=== PATIENT | female | born 1945 | race Two or more races ===

== ENCOUNTER 2018-01-30 02:30 | Inpatient (IN) | payer MEDICARE, MEDICAID ==
[~2018-01-30] VITALS: Ht 172.7 cm; Wt 122.5 kg
--- NOTE | 2018-01-30 02:53 | NUR ---
72 YO FEMALE, PT BIBA#89, PT PER EMS HAD A WITNESSED SEIZURE, BS IN FIELD WAS 127 PT GIVEN 162MG OF ASA AND 2 SPRAYS OF NITRO PRIOR TO ARRIVAL. PATIENT DS TO ER BED, SKIN WARM AND DRY, RESP EVEN AND UNLABORED. AWAITING ORDERS FROM PROVIDER
[2018-01-30] MEDS ORDERED: HYDROCODONE/APAP 10/325MG 1 EA TABLET ONE (02:57)
[2018-01-30] MEDS ORDERED: NITROGLYCERIN PACKET 1 GM PACKET ONE (02:57)
[2018-01-30] MEDS ORDERED: NITROGLYCERIN PACKET 1 GM PACKET TD ONE (03:00)
[2018-01-30] MEDS ORDERED: HYDROCODONE/APAP 10/325MG 1 EA TABLET PO ONE (03:00)
[2018-01-30 03:14] LABS: BASOPHILS % (AUTO) 0.5 % (0.0-2.0); EOSINOPHILS # (AUTO) 0.1 /CMM (0.0-0.7); EOSINOPHILS % (AUTO) 1.6 % (0.0-6.0); HEMATOCRIT 32 % (33-45); HEMOGLOBIN 10.6 g/dL (11.5-14.8); LYMPHOCYTES # (AUTO) 0.9 /CMM (0.8-4.8); LYMPHOCYTES % (AUTO) 17.4 % (20.0-44.0); MEAN CORPUSCULAR HEMOGLOBIN 24 PG (26.0-33.0); MEAN CORPUSCULAR HGB CONC 33 g/dl (31.0-36.0); MEAN CORPUSCULAR VOLUME 72 fL (82-100); MONOCYTES # (AUTO) 0.5 /CMM (0.1-1.30); MONOCYTES % (AUTO) 9.3 % (2.0-12.0); NEUTROPHILS # (AUTO) 3.7 /CMM (1.8-8.9); NEUTROPHILS % (AUTO) 71.2 % (43.0-81.0); PLATELET COUNT (AUTO) 77 /CMM (150-450); RED BLOOD CELL COUNT(AUTO) 4.51 MIL/uL (4.0-5.2); WHITE BLOOD COUNT (AUTO) 5.2 K/uL (4.3-11.0)
[2018-01-30 03:24] LABS: CALCIUM, SERUM 8.6 mg/dL (8.5-10.1); CARBON DIOXIDE 21 mmol/L (21-32); CHLORIDE 103 mmol/L (98-107); CREATININE 0.7 mg/dL (0.6-1.3); GLUCOSE 175 mg/dL (74-106); POTASSIUM 3.6 mmol/L (3.5-5.1); SODIUM SERUM 137 mmol/L (136-145); UREA NITROGEN, BLOOD 18 mg/dL (7-18)
--- NOTE | 2018-01-30 03:26 | NUR ---
ORDERED MEDS GIVEN
[2018-01-30 03:31] LABS: TROPONIN I < 0.017 ng/mL (0.00-0.056)
[2018-01-30 03:36] LABS: ALANINE AMINOTRANSFERASE 30 U/L (12-78); ALBUMIN 3.1 g/dL (3.4-5.0); ALKALINE PHOSPHATASE 109 U/L (46-116); ASPARTATE AMINOTRANSFERASE 23 U/L (15-37); B-TYPE NATRIURETIC PEPTIDE 133 PG/ML (0-125); BILIRUBIN,DIRECT 0.1 mg/dL (0.0-0.2); BILIRUBIN,TOTAL 0.3 mg/dL (0.2-1.0); TOTAL PROTEIN, SERUM 6.9 g/dL (6.4-8.2)
[2018-01-30 03:39] LABS: LYMPHOCYTES % (MANUAL) 18 % (16-48); MONOCYTES % (MANUAL) 9 % (0-11.0); NEUTROPHILS % (MANUAL) 73 (42-76)
--- NOTE | 2018-01-30 04:19 | NUR ---
PAGED EPIC FOR PANEL
--- NOTE | 2018-01-30 05:07 | NUR ---
NEW ADMISSION CREAM DUMPER NOTES RECEIVED PT FROM ER VIA HUMBERTO, ACCOMPANIED BY STAFF. A & O X 4, ABLE TO MAKE NEEDS KNOWN, NO SOB, NO ACUTE DISTRESS NOTED @ THIS TIME. HAD C/O BACK PAIN & HEADACHE. V/S CHECKED. HOB ELEVATED. IV ACCESS TO LAC, INTACT PATENT, SL. ON BED REST. CONTINENT OF B & BM, MAY USE BSC FOR SAFETY. BODY CHECK DONE, PHOTOS TAKEN. ALL BELONGINGS ACCOUNTED FOR & DOCUMENTED BY APARTMENT PROPERTY MANAGER. ALL ORDERS VERIFIED BY MD, NOTED & CARRIED OUT. BED IN LOW LOCKED POSITION. CALL LIGHT WITHIN REACH. WILL CONTINUE TO MONITOR.
[2018-01-30 05:08] VITALS: BP 155/75
--- NOTE | 2018-01-30 05:09 | NUR ---
report given to ruth ann costello. pt transfered to [id number]/tele. pt transported via acls protocol.
[2018-01-30] MEDS ORDERED: TRAM50TA2 PO (05:11)
[2018-01-30] MEDS ORDERED: METF500T4 PO (05:11)
[2018-01-30] MEDS ORDERED: ASPI-605 PO (05:11)
[2018-01-30] MEDS ORDERED: CELE100C PO (05:11)
[2018-01-30] MEDS ORDERED: LOSA50TA21 PO (05:11)
[2018-01-30] MEDS ORDERED: FOLI1TAB16 PO (05:11)
[2018-01-30] MEDS ORDERED: CALC-811 PO (05:11)
[2018-01-30] MEDS ORDERED: RANI150T8 PO (05:11)
[2018-01-30] MEDS ORDERED: HYDR-3980 PO (05:11)
[2018-01-30] MEDS ORDERED: HYDROCODONE/APAP 5/325MG 1 EACH TABLET PO PRN (06:00)
[2018-01-30] MEDS ORDERED: MAG HYDROX/AL HYDROX/SIMETH 30 ML UDC PO PRN (06:00)
[2018-01-30] MEDS ORDERED: ENOXAPARIN SODIUM 60 MG/0.6 ML DISP.SYRIN SQ SCH (06:00)
[2018-01-30] MEDS ORDERED: ACETAMINOPHEN 325 MG TABLET PO PRN (06:00)
[2018-01-30] MEDS ORDERED: Z GUARD REMEDY 2 OZ OINT TP PRN (06:00)
[2018-01-30] MEDS ORDERED: ONDANSETRON HCL/PF 4 MG/2 ML VIAL IVP PRN (06:00)
[2018-01-30] MEDS ORDERED: MAGNESIUM HYDROXIDE 30 ML UDC PO PRN (06:00)
[2018-01-30] MEDS ORDERED: hydrALAZINE HCL IV 20 MG VIAL IV PRN (06:00)
[2018-01-30] MEDS ORDERED: DEXTROSE 50%-WATER 50 ML DISP.SYRIN IV PRN (06:00)
[2018-01-30] MEDS ORDERED: ZOLPIDEM TARTRATE 5 MG TABLET PO PRN (06:00)
[2018-01-30] MEDS: TRAMADOL HCL 50 MG TABLET PO SCH ×4 (06:38→23:58)
--- NOTE | 2018-01-30 07:15 | NUR ---
HOG CUTTER NOTES RECEIVED PATIENT IN BED , ALERT ORIENTED X4. NO ACUTE DISTRESS NOTED. NO SOB NOTED. BREATHING UNLABORED. IV ACCESS PATENT AND INTACT, NO S/SX OR REDNESS OR SWELLING. SAFETY MEASURES IN PLACE. HOB ELEVATED. WILL CONTINUE TO MONITOR ACCORDINGLY.
--- NOTE | 2018-01-30 07:30 | NUR ---
SUPERVISOR ERECTION SHOP CLOSING NOTES PATIENT RESTING IN BED, BP 155/75, 63, 20, 96 %. TRAMADOL WAS GIVEN FOR PAIN & WAS EFFECTIVE, PER PATIENT. ON TELE MONITORING WITH SR WITH 1ST DEGREE AB BLOCK, HR 66. ALL NEEDS MET. BED IN LOW LOCKED POSITION. CALL LIGHT WITHIN REACH. ENDORSED TO AM RN FOR CONTINUITY OF CARE.
[2018-01-30 08:00] VITALS: BP 149/67
[2018-01-30] MEDS: BLOOD SUGAR DIAGNOSTIC 1 EACH STRIP VI SCH ×4 (08:00→21:53)
[2018-01-30] MEDS: METFORMIN 500 MG TABLET PO SCH ×2 (08:17→17:37)
[2018-01-30] MEDS: CELECOXIB 100 MG CAPSULE PO SCH ×2 (08:17→17:37)
[2018-01-30] MEDS: FAMOTIDINE (20 MG) 20 MG TABLET PO SCH ×2 (08:17→21:53)
[2018-01-30] MEDS: FOLIC ACID 1 MG TABLET PO SCH (08:17)
[2018-01-30] MEDS: ASPIRIN EC 81 MG TABLET.DR PO SCH (08:17)
[2018-01-30] MEDS: LOSARTAN POTASSIUM 50 MG TABLET PO SCH (08:19)
[2018-01-30] MEDS: INSULIN REGULAR, HUMAN 100 UNIT/ML 3 ML VIAL SQ PRN ×2 (10:00→12:22)
[2018-01-30 12:00] VITALS: BP 119/61
[2018-01-30 16:00] VITALS: BP 124/66
--- NOTE | 2018-01-30 16:40 | NUR ---
MS RN NOTES SEEN AND EVALUATED BY MARY CANO WITH NEW ORDERS MADE, NOTED AND CARRIED OUT.
[2018-01-30] MEDS ORDERED: NITROGLYCERIN 0.4 MG/TAB BOTTLE SL PRN (17:00)
--- NOTE | 2018-01-30 18:45 | NUR ---
MS SCOTT NOTES SEEN AND EVALUATED BY MARY HARRISON SON AT BEDSIDE. Addendum: 01/30/18 at 1940 by GINGER YEPEZ RN ERROR WRONG CHART
--- NOTE | 2018-01-30 19:00 | NUR ---
CARDIOLOGY TECHNOLOGIST NOTES PATIENT IN BED , ALERT ORIENTED X4. NO ACUTE DISTRESS NOTED. NO SOB NOTED. BREATHING UNLABORED. IV ACCESS PATENT AND INTACT, NO S/SX OR REDNESS OR SWELLING. DUE MEDICATIONS GIVEN, NO ASE NOTED. NEEDS ATTENDED AND ANTICIPATED. CALL LIGHT WITHIN REACH. SAFETY MEASURES IN PLACE. HOB ELEVATED. WILL ENDORSE TO NIGHT NURSE FOR CONTINUITY OF CARE.
--- NOTE | 2018-01-30 19:05 | NUR ---
APPLICATION PACKAGING SPECIALIST NOTES PT AWAKE RESTING IN BED. NO COMPLAINTS OF PAIN, SOB OR DISTRESS AT THIS TIME. PT TELE MONITORED SINUS RHYTHM WITH FIRST DEGREE AV BLOCK. PT HAS A LEFT AC #20 IV, INTACT AND PATENT. NO COMPLAINTS OF CHEST PAIN. SAFETY PRECAUTIONS IN PLACE. BED IN LOW, LOCKED POSITION, X2 SIDE RAILS. CALL LIGHT WITHIN REACH. WILL CONTINUE TO MONITOR.
[2018-01-30 20:00] VITALS: BP 132/69
[2018-01-30] MEDS: HEPARIN SODIUM, PORCINE 5000 UNITS/1 ML VIAL SQ SCH (21:00)
[2018-01-30] MEDS: *INSULIN REGULAR(HUMULIN R)HUM 100 UNIT/ML VIAL SQ PRN (21:52)
--- NOTE | 2018-01-30 23:00 | NUR ---
BRINE ROOM LABORER NOTES PT PLT LEVEL 77. PT WAS SCHEDULED FOR HEPARIN 5,000. PER DR PATEL HOLD DOSE. WILL ENDORSE TO DAY SHIFT FOR CONTINUITY OF CARE.
[2018-01-31] VITALS: BP 134/60
[2018-01-31 04:00] VITALS: BP 151/75
[2018-01-31] MEDS: BLOOD SUGAR DIAGNOSTIC 1 EACH STRIP VI SCH ×4 (06:14→21:15)
[2018-01-31] MEDS: TRAMADOL HCL 50 MG TABLET PO SCH ×3 (06:14→17:13)
[2018-01-31] MEDS: INSULIN REGULAR, HUMAN 100 UNIT/ML 3 ML VIAL SQ PRN ×3 (06:19→17:16)
[2018-01-31 07:00] LABS: BASOPHILS % (AUTO) 0.5 % (0.0-2.0); EOSINOPHILS # (AUTO) 0.1 /CMM (0.0-0.7); EOSINOPHILS % (AUTO) 2.2 % (0.0-6.0); HEMATOCRIT 33 % (33-45); HEMOGLOBIN 10.7 g/dL (11.5-14.8); LYMPHOCYTES # (AUTO) 0.9 /CMM (0.8-4.8); LYMPHOCYTES % (AUTO) 21.4 % (20.0-44.0); MEAN CORPUSCULAR HEMOGLOBIN 24 PG (26.0-33.0); MEAN CORPUSCULAR HGB CONC 33 g/dl (31.0-36.0); MEAN CORPUSCULAR VOLUME 73 fL (82-100); MONOCYTES # (AUTO) 0.5 /CMM (0.1-1.30); MONOCYTES % (AUTO) 11.9 % (2.0-12.0); NEUTROPHILS # (AUTO) 2.8 /CMM (1.8-8.9); PLATELET COUNT (AUTO) 82 /CMM (150-450); RDW COEFFICIENT OF VARIATION 18.8 (11.5-15.0); WHITE BLOOD COUNT (AUTO) 4.4 K/uL (4.3-11.0)
--- NOTE | 2018-01-31 07:02 | NUR ---
ROOFING LABORER CLOSING NOTES PT AWAKE RESTING IN BED. NO COMPLAINTS OF PAIN, SOB OR DISTRESS OVER NIGHT. PT TELE MONITORED SINUS RHYTHM WITH FIRST DEGREE AV BLOCK. PT HAS A LEFT AC #20 IV, INTACT AND PATENT. NO COMPLAINTS OF CHEST PAIN. SAFETY PRECAUTIONS IN PLACE. BED IN LOW, LOCKED POSITION, X2 SIDE RAILS. CALL LIGHT WITHIN REACH. WILL ENDORSE TO DAY SHIFT NURSE FOR CONTINUITY OF CARE.
--- NOTE | 2018-01-31 07:10 | NUR ---
TELE.RN OPENING NOTES. PT RECEIVED A&0X3. PT WITH TELE SR WITH IT DEGREE AV BLOCK. PT RESTING IN BED. PT TOLERATING ROOM AIR WITHOUT SOB. PT REPORTS CURRENT PAIN MANAGEMENT ADEQUATE. PT WITH IVC AT L AC INTACT AND SALINE FLUSH PATENT. BED IN LOWEST LOCKED POSITION WITH HANDRAILSX2 AND CALL HAMILTON WITHIN REACH. PT BRIEFED ON TODAY'S POC AND IS WITHOUT CONCERN OR COMPLAINT AT THIS TIME.
[2018-01-31 07:14] LABS: CALCIUM, SERUM 8.7 mg/dL (8.5-10.1); CARBON DIOXIDE 29 mmol/L (21-32); CHLORIDE 104 mmol/L (98-107); CREATININE 0.6 mg/dL (0.6-1.3); GLUCOSE 164 mg/dL (74-106); MAGNESIUM 1.8 mg/dL (1.8-2.4); PHOSPHORUS 3.9 mg/dL (2.5-4.9); POTASSIUM 3.9 mmol/L (3.5-5.1); SODIUM SERUM 138 mmol/L (136-145); UREA NITROGEN, BLOOD 17 mg/dL (7-18)
[2018-01-31 07:22] LABS: IRON, SERUM 44 ug/dl (50-175); TOTAL IRON BINDING CAPACITY 305 ug/dl (250-450)
[2018-01-31 07:32] LABS: CHOLESTEROL 170 mg/dL (<200); FERRITIN 11 ng/mL (8-388); HDL CHOLESTEROL 57 mg/dL (40-60); LDL 102 mg/dL (0-99); TRIGLYCERIDES 94 mg/dL (30-150)
[2018-01-31 08:00] VITALS: BP 127/66
[2018-01-31 08:06] LABS: EOSINOPHILS % (MANUAL) 3 % (0-4); LYMPHOCYTES % (MANUAL) 19 % (16-48); MONOCYTES % (MANUAL) 11 % (0-11.0); NEUTROPHILS % (MANUAL) 67 (42-76)
[2018-01-31] MEDS: CELECOXIB 100 MG CAPSULE PO SCH ×2 (09:02→17:13)
[2018-01-31] MEDS: ASPIRIN EC 81 MG TABLET.DR PO SCH (09:02)
[2018-01-31] MEDS: METFORMIN 500 MG TABLET PO SCH ×2 (09:02→17:15)
[2018-01-31] MEDS: FOLIC ACID 1 MG TABLET PO SCH (09:02)
[2018-01-31] MEDS: FAMOTIDINE (20 MG) 20 MG TABLET PO SCH ×2 (09:02→21:16)
[2018-01-31] MEDS: LOSARTAN POTASSIUM 50 MG TABLET PO SCH (09:11)
--- NOTE | 2018-01-31 11:30 | NUR ---
TELE.R NOTES. LATE HEPARIN ADMIN R/T CONFIRMED WITH MARY PUGH THAT IT'S OK TO GIVE.
[2018-01-31] MEDS: HEPARIN SODIUM, PORCINE 5000 UNITS/1 ML VIAL SQ SCH ×2 (11:45→21:20)
[2018-01-31 12:00] VITALS: BP 143/63
[2018-01-31 16:00] VITALS: BP 120/73
--- NOTE | 2018-01-31 16:22 | NUR ---
Holistic Pulser Consult was requested by Dr. Steve Prakash regarding depression. Pt is a 72 year old female who was admitted to [facility] for chest pain. SW met with the patient at her bedside. Patient was oriented x4. Patient appeared depressed and withdrawn. Pt was residing at [address] [place] [address] prior to hospitalization. The pts emergency contact is her granddaughter Jillian . Patient denies use of drugs, cigarettes, and alcohol. Patient denies any current suicidal or homicidal ideation. Pt denies any auditory and visual hallucinations. Pt reports that she is feeling depressed due to life circumstances (finances, relationships, and walking ability). Patient stated that she was open to Mental Health referrals. SW provided pt. with Mental Health resources to [facility] ([address] [place] [address]; [phone]), [facility] ([address] [place] [address]; [phone]) and [facility] ([address] [place] [address]; [phone]. SW followed up with case management due to pts request for a motor wheel chair. ALISON spoke to SONIA Asher in regards to pt. reporting she is depressed and the mental health resources provided. Plan: When pt. is stable she will be discharged to her home [address] [place] [address]. Pt reported that she will follow up with Mental Health resources.
--- NOTE | 2018-01-31 19:06 | NUR ---
TEL RN CLOSING NOTES. PT REMAINS A&0X3 TOLERATING ROOM AIR WITHOUT SOB, PT REPORTS CURRENT PAIN MANAGEMENT ADEQUATE. PT TELE SR 1ST DEGREE BLOCK 65. PT WITH IVC AT LAC G#20 SL. ALL DAY NURSE DUTIES ATTENDED TO AND PT IS WITHOUT CONCERN OR COMPLAINT AT THIS TIME. WILL ENDORSE TO NIGHT NURSE AT BEDSIDE.
--- NOTE | 2018-01-31 19:46 | NUR ---
COMMISSARY REPRESENTATIVE OPENING NOTE RECEIVED PATIENT IN BED, ALERT ORIENTED X3. ON ROOM AIR TOLERATING WELL, DENIES SOB. RESPIRATIONS EVEN AND UNLABORED. NO SIGN OF APPARENT DISTRESS OR DISCOMFORT, DENIES PAIN AT THIS TIME. PATIENT ON TELE MONITOR, SR WITH 1ST DEGREE AV BLOCK, HR OF 65. L AC SL 20G. PATIENT KEPT CLEAN AND COMFORTABLE, SAFETY MEASURES IN PLACE, BED IN LOW LOCKED POSITION, SIDE RAILS UPX2, CALL LIGHT WITHIN EASY REACH. WILL CONTINUE TO MONITOR.
[2018-01-31 20:00] VITALS: BP 134/53
[2018-01-31] MEDS: *INSULIN REGULAR(HUMULIN R)HUM 100 UNIT/ML VIAL SQ PRN (21:24)
--- NOTE | 2018-02-01 00:23 | NUR ---
TRAMADOL NOT ADMINISTERED, PATIENT REFUSED AT THIS TIME, DENIES PAIN.
[2018-02-01] MEDS: TRAMADOL HCL 50 MG TABLET PO SCH ×3 (06:10→11:47)
--- NOTE | 2018-02-01 06:54 | NUR ---
MS RN CLOSING NOTE PATIENT IN BED, ALERT ORIENTED X3. ABLE TO MAKE NEEDS KNOWN. ON ROOM AIR TOLERATING WELL, DENIES SOB. RESPIRATIONS EVEN AND UNLABORED. NO SIGN OF APPARENT DISTRESS OR DISCOMFORT, DENIES PAIN AT THIS TIME. MS. Gallego AC SL 20G FLASHED WITH SALINE, PATENT AND INTACT. PATIENT KEPT CLEAN AND COMFORTABLE, ALL NEEDS ATTENDED. SAFETY MEASURES IN PLACE, BED IN LOW LOCKED POSITION, SIDE RAILS UPX2, CALL LIGHT WITHIN EASY REACH. WILL ENDORSE TO AM NURSE FOR CONTINUITY OF CARE.
[2018-02-01] MEDS: BLOOD SUGAR DIAGNOSTIC 1 EACH STRIP VI SCH ×2 (07:20→11:47)
[2018-02-01] MEDS: INSULIN REGULAR, HUMAN 100 UNIT/ML 3 ML VIAL SQ PRN ×2 (07:26→14:06)
[2018-02-01 08:00] VITALS: BP 144/85
--- NOTE | 2018-02-01 08:49 | NUR ---
MS RN AM NOTE: PATIENT IS ALERT AND ORIENTED X 3. PATIENT ON ROOM AIR AT 94%. RESPIRATIONS EVEN AND UNLABORED. DENIES SOB. PATIENT USES BEDSIDE COMMODE. LEFT AC IV. NO PAIN NOTED. CALL LIGHT WITHIN REACH. BED IN LOCKED POSITION AND SIDE RAILS X2 UP. WILL CONT TO MONITOR FOR SAFETY.
[2018-02-01] MEDS: CELECOXIB 100 MG CAPSULE PO SCH (09:01)
[2018-02-01] MEDS: METFORMIN 500 MG TABLET PO SCH (09:01)
[2018-02-01] MEDS: FAMOTIDINE (20 MG) 20 MG TABLET PO SCH (09:01)
[2018-02-01 09:02] VITALS: BP 144/83
[2018-02-01] MEDS: ASPIRIN EC 81 MG TABLET.DR PO SCH (09:02)
[2018-02-01] MEDS: FOLIC ACID 1 MG TABLET PO SCH (09:02)
[2018-02-01] MEDS: LOSARTAN POTASSIUM 50 MG TABLET PO SCH (09:02)
[2018-02-01] MEDS: HEPARIN SODIUM, PORCINE 5000 UNITS/1 ML VIAL SQ SCH (09:03)
[2018-02-01] MEDS ORDERED: ALBU18HF2 INH (12:21)
--- NOTE | 2018-02-01 14:42 | NUR ---
RN NOTE: HEP LOCK REMOVED. EXIT CARE PAPERWORK SIGNED AND EXPLAINED. BELONGINGS WITH PATIENT AND SIGNED. PATIENT REFUSED TO HAVE SKIN ASSESSMENT AND PICTURES TAKEN BECAUSE SHE IS IN A HURRY AND WANTS TO LEAVE. WAITING FOR GRANDDAUGHTER TO ARRIVE.
--- NOTE | 2018-02-01 15:10 | NUR ---
DISCHARGE NOTE: PATIENT'S GRANDDAUGHTER IS HERE FOR STONE AND CONCRETE WASHER. PATIENT LEFT AND ESCORTED OUT AT 1510. BELONGINGS WITH PATIENT. MEDICALLY STABLE. V/S STABLE. SKIN ASSESSMENT REFUSED. EXIT CARE GIVEN AND EXPLAINED TO PATIENT. THO GAVE DISCHARGE ORDER AND AWARE.
== END 2018-02-01 15:10 | disposition home health service (06) | DRG 313 ==
LOC: ER 02:32 → TELE 04:50 → MED 06:26 → TELE 01-31 06:46 → MED 01-31 20:31
PROVIDERS: ADMIT Nurse Practitioner Acute Care; ATTEND Nurse Practitioner Acute Care
DX: R07.89 Other chest pain (principal); E11.42 Type 2 diabetes mellitus with diabetic polyneuropathy; D69.6 Thrombocytopenia, unspecified; E44.1 Mild protein-calorie malnutrition; E11.65 Type 2 diabetes mellitus with hyperglycemia; Z68.41 Body mass index [BMI] 40.0-44.9, adult; E66.01 Morbid (severe) obesity due to excess calories; I10 Essential (primary) hypertension; E78.5 Hyperlipidemia, unspecified; F32.9 Major depressive disorder, single episode, unspecified; F41.9 Anxiety disorder, unspecified; G83.9 Paralytic syndrome, unspecified; G89.29 Other chronic pain; Z74.01 Bed confinement status; Z99.3 Dependence on wheelchair; Z87.891 Personal history of nicotine dependence; Z86.011 Personal history of benign neoplasm of the brain; Z98.890 Other specified postprocedural states; Z79.82 Long term (current) use of aspirin; Z79.84 Long term (current) use of oral hypoglycemic drugs; Z79.899 Other long term (current) drug therapy; D50.9 Iron deficiency anemia, unspecified
CPT/HCPCS: 36415; 71045-TC; 80048-TC; 80061-TC; 80076-TC; 82728-TC; 82962-TC; 83540-TC; 83735-TC; 83880; 84100-TC; 84484-TC; 85025-TC; 85378-TC; 87081-TC; 93307-TC; A4606; J1644; J1815; Z7610

== ENCOUNTER 2018-04-17 13:50 | Emergency (ER) | payer MEDICARE, OTHER ==
[~2018-04-17] VITALS: Ht 167.6 cm; Wt 124.3 kg
[~2018-04-17 13:50] MED LIST: ALBU18HF2 INH; ASPI-605 PO; CALC-811 PO; CELE100C PO; FOLI1TAB16 PO; HYDR-3980 PO; LOSA50TA21 PO; METF500T4 PO; RANI150T8 PO; TRAM50TA2 PO
--- NOTE | 2018-04-17 13:50 | NUR ---
[id number] FROM HOME FOR MID BACK PAIN S/P TRIPPED AND FALL WHILE WALKING WITH HER WALKER. PT IS VERY ANXIOUS, SCREAMING IN PAIN AND APPEARS RESTLESS. PLACED ON CONT CARDIAC AND POX MONITORING. ALL NEEDS ARE ATTENDED, WILL CONT TO MONITOR
[2018-04-17] MEDS ORDERED: ONDANSETRON HCL/PF 4 MG/2 ML VIAL ONE (14:29)
[2018-04-17] MEDS ORDERED: ONDANSETRON HCL/PF 4 MG/2 ML VIAL IV ONE (14:30)
[2018-04-17] MEDS ORDERED: MORPHINE SULFATE INJ 4 MG/ML DISP.SYRIN ONE (14:30)
[2018-04-17] MEDS ORDERED: MORPHINE SULFATE INJ 2 MG/ML DISP.SYRIN IV ONE (14:30)
[2018-04-17 14:35] LABS: BASOPHILS % (AUTO) 0.4 % (0.0-2.0); EOSINOPHILS # (AUTO) 0.1 /CMM (0.0-0.7); EOSINOPHILS % (AUTO) 1.2 % (0.0-6.0); HEMATOCRIT 30 % (33-45); HEMOGLOBIN 9.8 g/dL (11.5-14.8); LYMPHOCYTES # (AUTO) 0.6 /CMM (0.8-4.8); LYMPHOCYTES % (AUTO) 13.3 % (20.0-44.0); MEAN CORPUSCULAR HEMOGLOBIN 23 PG (26.0-33.0); MEAN CORPUSCULAR HGB CONC 32 g/dl (31.0-36.0); MEAN CORPUSCULAR VOLUME 70 fL (82-100); MONOCYTES # (AUTO) 0.4 /CMM (0.1-1.30); MONOCYTES % (AUTO) 8.2 % (2.0-12.0); NEUTROPHILS # (AUTO) 3.3 /CMM (1.8-8.9); NEUTROPHILS % (AUTO) 76.9 % (43.0-81.0); RDW COEFFICIENT OF VARIATION 17.4 (11.5-15.0); RED BLOOD CELL COUNT(AUTO) 4.28 MIL/uL (4.0-5.2); WHITE BLOOD COUNT (AUTO) 4.4 K/uL (4.3-11.0)
[2018-04-17 14:38] LABS: PLATELET COUNT (AUTO) 96 /CMM (150-450)
[2018-04-17 14:42] LABS: CALCIUM, SERUM 8.9 mg/dL (8.5-10.1); CARBON DIOXIDE 21 mmol/L (21-32); CHLORIDE 102 mmol/L (98-107); CREATININE 0.8 mg/dL (0.6-1.3); GLUCOSE 311 mg/dL (74-106); POTASSIUM 4.1 mmol/L (3.5-5.1); SODIUM SERUM 136 mmol/L (136-145); UREA NITROGEN, BLOOD 12 mg/dL (7-18)
[2018-04-17 16:08] LABS: LYMPHOCYTES % (MANUAL) 19 % (16-48); MONOCYTES % (MANUAL) 4 % (0-11.0); NEUTROPHILS % (MANUAL) 77 (42-76)
[2018-04-17] MEDS ORDERED: HYDROCODONE/APAP 5/325MG 1 EACH TABLET PO ONE (17:00)
[2018-04-17] MEDS ORDERED: HYDROCODONE/APAP 5/325MG 1 EACH TABLET ONE (17:44)
--- NOTE | 2018-04-17 21:24 | NUR ---
Note taye in ED - 04/17/18 at 2136 by REENA Patient discharged to home in stable condition. Written and verbal after care instructions given. Patient verbalizes understanding of instruction. IV removed. Catheter intact and site benign. Pressure and 4x4 applied to site. No bleeding noted.
[2018-04-17 22:49] VITALS: BP 141/80
--- NOTE | 2018-04-17 22:50 | NUR ---
Patient discharged to home in stable condition. Written and verbal after care instructions given. Patient verbalizes understanding of instruction. IV removed. Catheter intact and site benign. Pressure and 4x4 applied to site. No bleeding noted.
== END 2018-04-17 23:02 | disposition home or self-care (01) ==
LOC: ER 13:52
DX: S30.0XXA Contusion of lower back and pelvis, initial encounter (principal); E11.9 Type 2 diabetes mellitus without complications; I10 Essential (primary) hypertension; I25.10 Atherosclerotic heart disease of native coronary artery without angina pectoris; M43.16 Spondylolisthesis, lumbar region; S32.592A Other specified fracture of left pubis, initial encounter for closed fracture; Z79.82 Long term (current) use of aspirin; W01.0XXA Fall on same level from slipping, tripping and stumbling without subsequent striking against object, initial encounter; Y93.01 Activity, walking, marching and hiking; Y92.89 Other specified places as the place of occurrence of the external cause; Y99.8 Other external cause status
CPT/HCPCS: 36415; 72100-TC; 73521; 80048-TC; 82962-TC; 85025-TC; A4606; J2270; J2405; Z7610

== ENCOUNTER 2019-09-13 21:14 | Inpatient (IN) | payer MEDICARE, MEDICAID ==
[~2019-09-13] VITALS: Ht 167.6 cm; Wt 107.0 kg
[~2019-09-13 21:14] MED LIST changes: +CALC-17 PO; -CALC-811 PO; -LOSA50TA21 PO; +LOSA50TA39 PO; +METF-440 PO; -METF500T4 PO
[2019-09-13] MEDS ORDERED: ALBUTEROL FS 2.5 MG/3 ML VIAL.NEB ONE (21:23)
[2019-09-13] MEDS ORDERED: IPRATROPIUM NEB FS 0.5 MG/2.5 ML AMPUL.NEB NEB ONE (21:30)
[2019-09-13] MEDS ORDERED: methylPREDNISolone SOD SUCC 125 MG/2ML VIAL IV ONE (21:30)
[2019-09-13] MEDS ORDERED: ALBUTEROL FS 2.5 MG/3 ML VIAL.NEB CONTNEB ONE (21:30)
[2019-09-13] MEDS ORDERED: methylPREDNISolone SOD SUCC 125 MG/2ML VIAL ONE (21:31)
[2019-09-13] MEDS ORDERED: IPRATROPIUM NEB FS 0.5 MG/2.5 ML AMPUL.NEB ONE (21:31)
--- NOTE | 2019-09-13 21:32 | NUR ---
Negro kothari in [facility] - 09/13/19 at 2133 by WAN CALLED CIGAR PACKER CYANIDE POT TENDER. SPEAKING TO ORION FREY
[2019-09-13 21:35] LABS: BASOPHILS # (AUTO) 0.1 /CMM (0.0-0.2); BASOPHILS % (AUTO) 0.7 % (0.0-2.0); EOSINOPHILS % (AUTO) 3.2 % (0.0-6.0); HEMATOCRIT 34 % (33-45); HEMOGLOBIN 10.1 g/dL (11.5-14.8); LYMPHOCYTES # (AUTO) 3.1 /CMM (0.8-4.8); LYMPHOCYTES % (AUTO) 34.6 % (20.0-44.0); MEAN CORPUSCULAR HGB CONC 30 g/dl (31.0-36.0); MEAN CORPUSCULAR VOLUME 64 fL (82-100); MONOCYTES # (AUTO) 0.8 /CMM (0.1-1.30); MONOCYTES % (AUTO) 9.3 % (2.0-12.0); NEUTROPHILS # (AUTO) 4.8 /CMM (1.8-8.9); NEUTROPHILS % (AUTO) 52.2 % (43.0-81.0); PLATELET COUNT (AUTO) 119 /CMM (150-450); RED BLOOD CELL COUNT(AUTO) 5.29 MIL/uL (4.0-5.2); WHITE BLOOD COUNT (AUTO) 9.1 K/uL (4.3-11.0)
--- NOTE | 2019-09-13 21:38 | NUR ---
PT [id number] PER EMS, C/O SOB, PT SPEAKING IN 2-3 WORD SENTENCES. PT SEEN & EVAL'D BY DR. CASTILLO. TACHYPNEIC. PLACED ON BIPAP & TRUCK DRIVER SALESPERSON. GIVEN BREATHING TX, MEDICATED ORDERED, PT DANIEL WELL. WILL CONT TO MONITOR.
--- NOTE | 2019-09-13 21:41 | NUR ---
CALLED RN SUP FOR ICU BED.
[2019-09-13 22:06] LABS: B-TYPE NATRIURETIC PEPTIDE 223 PG/ML (0-125); CALCIUM, SERUM 8.7 mg/dL (8.5-10.1); CARBON DIOXIDE 24 mmol/L (21-32); CHLORIDE 104 mmol/L (98-107); CREATININE 0.8 mg/dL (0.6-1.3); POTASSIUM 4.1 mmol/L (3.5-5.1); SODIUM SERUM 139 mmol/L (136-145); UREA NITROGEN, BLOOD 14 mg/dL (7-18)
[2019-09-13 22:08] LABS: GLUCOSE 365 mg/dL (74-106)
[2019-09-13 22:16] LABS: ABG BASE EXCESS -5.9 mmol/L; ABG OXYGEN SATURATION 99.4 % (92.0-98.5); ABG PCO2 41.1 mmHg (35.0-45.0); ABG PH 7.306 (7.350-7.450); AaDO2 244.9 mmHg; COHb 0.7 % (0.5-1.5); MetHb 0.4 % (0.0-1.5); O2Hb 98.3 % (94.0-97.0)
--- NOTE | 2019-09-13 22:20 | NUR ---
RT NOTE TITRATED FIO2 TO 40% POST ABG RESULTS. MD CASTILLO AWARE. NO SOB NOTED. PLACED PT ON NOSE MASK AT THIS TIME. WILL CONTINUE TO MONITOR.
[2019-09-13] MEDS ORDERED: FUROSEMIDE 40 MG/4 ML VIAL IV ONE (22:30)
[2019-09-13] MEDS ORDERED: FUROSEMIDE 40 MG/4 ML VIAL ONE (22:31)
[2019-09-13] MEDS ORDERED: FUROSEMIDE 20 MG/2 ML VIAL ONE (22:31)
--- NOTE | 2019-09-13 22:52 | NUR ---
CALLED [employer]. CLOTH TESTER WAS PAGED.
--- NOTE | 2019-09-13 23:06 | NUR ---
MEDICATED WITH 60MG OF LASIX PER ERMD ORDER. PT DANIEL WELL.
[2019-09-13 23:16] LABS: EOSINOPHILS % (MANUAL) 5 % (0-4); LYMPHOCYTES % (MANUAL) 36 % (16-48); MONOCYTES % (MANUAL) 10 % (0-11.0); NEUTROPHILS % (MANUAL) 46 (42-76); REACTIVE LYMPHOCYTES 3 % (0-0)
--- NOTE | 2019-09-13 23:20 | NUR ---
REPORT GIVEN TO SONIA JACQUES FOR KATY.
[2019-09-14] VITALS (16 sets, daily range): BP systolic 122–154; BP diastolic 52–75
[2019-09-14] MEDS ORDERED: ALBUTEROL HALF STRENGTH 1.25 MG/3 ML VIAL.NEB NEB PRN (00:30)
[2019-09-14] MEDS ORDERED: IPRATROPIUM NEB FS 0.5 MG/2.5 ML AMPUL.NEB NEB PRN (00:30)
[2019-09-14] MEDS ORDERED: Z GUARD REMEDY 2 OZ OINT TP PRN (00:30)
[2019-09-14] MEDS ORDERED: MAGNESIUM HYDROXIDE 30 ML UDC PO PRN (00:30)
[2019-09-14] MEDS ORDERED: ZOLPIDEM TARTRATE 5 MG TABLET PO PRN (00:30)
[2019-09-14] MEDS ORDERED: DEXTROSE 50%-WATER 50 ML DISP.SYRIN IV PRN ×2 (00:30→11:00)
[2019-09-14] MEDS ORDERED: INSULIN REGULAR, HUMAN 100 UNIT/ML 3 ML VIAL SQ PRN (00:30)
[2019-09-14] MEDS ORDERED: MAG HYDROX/AL HYDROX/SIMETH 30 ML UDC PO PRN (00:30)
[2019-09-14] MEDS ORDERED: ENOXAPARIN SODIUM 40 MG/0.4 ML DISP.SYRIN SQ SCH ×2 (00:30→08:00)
[2019-09-14] MEDS ORDERED: ONDANSETRON HCL/PF 4 MG/2 ML VIAL IVP PRN (00:30)
[2019-09-14] MEDS: HYDROCODONE/APAP 5/325MG 1 EACH TABLET PO PRN (01:01)
--- NOTE | 2019-09-14 01:33 | NUR ---
PT RCVD ON BIPAP 15/5 RATE 12, 40%. BIPAP PLUGGED INTO RED OUTLET, ALARMS ON AND AUDIBLE. AMBU BAG AT BEDSIDE. NO RESPIRATORY DISTRESS NOTED AT THIS TIME. WILL CONTINUE TO MONITOR THE PT. Addendum: 09/14/19 at 0332 by FRANCISCA WALLER RT BIPAP SETTINGS OF 15/5, RATE 14, FIO2 40%
[2019-09-14] MEDS: methylPREDNISolone SOD SUCC 40 MG/ML VIAL IV SCH ×3 (03:52→19:51)
[2019-09-14 04:52] LABS: BASOPHILS % (AUTO) 0.1 % (0.0-2.0); EOSINOPHILS % (AUTO) 0.1 % (0.0-6.0); HEMATOCRIT 30 % (33-45); HEMOGLOBIN 8.9 g/dL (11.5-14.8); LYMPHOCYTES # (AUTO) 0.3 /CMM (0.8-4.8); LYMPHOCYTES % (AUTO) 6.1 % (20.0-44.0); MEAN CORPUSCULAR HGB CONC 30 g/dl (31.0-36.0); MEAN CORPUSCULAR VOLUME 64 fL (82-100); MONOCYTES # (AUTO) 0.1 /CMM (0.1-1.30); MONOCYTES % (AUTO) 1.5 % (2.0-12.0); NEUTROPHILS # (AUTO) 4.5 /CMM (1.8-8.9); NEUTROPHILS % (AUTO) 92.2 % (43.0-81.0); PLATELET COUNT (AUTO) 56 /CMM (150-450); RED BLOOD CELL COUNT(AUTO) 4.66 MIL/uL (4.0-5.2); WHITE BLOOD COUNT (AUTO) 4.9 K/uL (4.3-11.0)
[2019-09-14 05:10] LABS: CALCIUM, SERUM 8.7 mg/dL (8.5-10.1); CREATININE 0.9 mg/dL (0.6-1.3); MAGNESIUM 1.5 mg/dL (1.8-2.4); POTASSIUM 4.4 mmol/L (3.5-5.1)
--- NOTE | 2019-09-14 05:23 | NUR ---
RN NOTES ADMITTED A 73 YEAR OLD FEMALE FROM EMERGENCY DEPARTMENT WITH DIAGNOSIS OF RESPIRATORY FAILURE VIA STRETCHER ACCOMPANIED BY THREE STAFF IN STABLE CONDITION. BREATHING EVEN AND UNLABORED. ON BIPAP TOLERATING WELL. TRIAL ON ROOM AIR DONE INSTRUCTED BY COLOR COATER, IN 10 MINUTES PATIENT'S O2SAT DROPPED TO 80'S. PUT BACK ON BIPAP AND O2SAT WENT UP TO 99'S. COMPLAINING OF KNEE AND BACK PAIN, NORCO GIVEN WITH RELIEF. ALERT AND ORIENTED X 4 UPPER SORBIAN SPEAKING. SKIN ASSESSMENT DONE. NEEDS ATTENDED. KEPT CLEAN AND DRY. BLOOD GLUCOSE TAKEN BY LAB WAS 421 AND BY GLUCOMETER WAS 401. 10 UNITS INSULIN ADMINISTERED. MD MADE AWARE AND NO FURTHER ORDER.
[2019-09-14] MEDS ORDERED: BLOOD SUGAR DIAGNOSTIC 1 EACH STRIP IN SCH (06:00)
[2019-09-14 06:08] LABS: EOSINOPHILS % (MANUAL) 1 % (0-4); LYMPHOCYTES % (MANUAL) 5 % (16-48); MONOCYTES % (MANUAL) 1 % (0-11.0); NEUTROPHILS % (MANUAL) 93 (42-76)
[2019-09-14 08:15] LABS: THYROID STIMULATING HORMONE 1.174 uIU/mL (0.358-3.74)
[2019-09-14] MEDS: CALCIUM CARB 600MG /VIT D 1 EACH TABLET PO SCH (08:27)
[2019-09-14] MEDS: ASPIRIN EC 81 MG TABLET.DR PO SCH (08:27)
[2019-09-14] MEDS: FUROSEMIDE 40 MG/4 ML VIAL IV SCH ×3 (08:28→16:00)
[2019-09-14] MEDS: POTASSIUM CHLORIDE 20 MEQ TAB.PRT.SR PO SCH ×2 (08:28→09:40)
[2019-09-14] MEDS: LOSARTAN POTASSIUM 50 MG TABLET PO SCH (08:28)
[2019-09-14] MEDS ORDERED: LOSARTAN POTASSIUM 50 MG TABLET PO SCH (09:00)
[2019-09-14] MEDS: CELECOXIB 100 MG CAPSULE PO SCH ×2 (09:40→17:45)
[2019-09-14] MEDS: Magnesium 1GM/D5W 100ML PREMIX 100 ML IV SCH ×2 (09:40→10:35)
--- NOTE | 2019-09-14 10:24 | NUR ---
RN NOTE 0715: Received patient A/Ox3, placed off Bipap and now on 2LPM of O2 via NC, sat >96%. Will keep off Bipap. PIV intact. John cath intact, noted with clear pale yellow urine drained to BSD. 0800: S/E by Dr. Belle, will give Lasix 40 x 3 doses. 1000: S/E by Dr. Jerez, with order to start on ATB for PNA. Lantus 20 for high BS and start on diabetic diet. 1020: Remained off Bipap, tolerated 2L NC. With order to transfer to [facility], CN and Sup aware.
[2019-09-14] MEDS ORDERED: INSULIN GLARGINE, 100 UNIT/ML CARTRIDGE SQ ONE (10:30)
[2019-09-14] MEDS: LEVOFLOXACIN (500MG) 500 MG TABLET PO SCH (10:35)
--- NOTE | 2019-09-14 10:42 | NUR ---
RN NOTE Report given to SONIA Dean still awaiting Lantus 20, will endorse.
--- NOTE | 2019-09-14 11:05 | NUR ---
[facility] THERAPIST NOTE RECEIVED PATIENT A/Ox3, ON 2L O2 VIA NC, NO SOB NOTED. PATIENT REPORTS 2/10 PAIN IN CHEST WHEN COUGHING. ATTACHED TO TELE MONITOR, SINUS RHYTHM 1ST DEGREE AV BLOCK + BBB. NOTED BLE 2+ EDEMA. SANTO CATHETER DRAINING CLEAR YELLOW URINE TO GRAVITY. L AC 18G C/D/I, PATENT, NO S/S INFILTRATION. CALL LIGHT WITHIN REACH, WILL CONT TO MONITOR Addendum: 09/14/19 at 1922 by TANYA HANDLEY RN VITALS STABLE, SEE DOCUMENTATION
[2019-09-14] MEDS: INSULIN REGULAR, HUMAN 100 UNIT/ML 3 ML VIAL SQ PRN ×3 (12:42→23:49)
[2019-09-14] MEDS: BLOOD SUGAR DIAGNOSTIC 1 EACH STRIP IN SCH ×3 (12:44→23:44)
[2019-09-14] MEDS: ACETAMINOPHEN 325 MG TABLET PO PRN (17:45)
[2019-09-14] MEDS ORDERED: FUROSEMIDE 40 MG/4 ML VIAL IV ONE (18:00)
--- NOTE | 2019-09-14 19:00 | NUR ---
RN OPENING NOTES: PATIENT IN BED, AWAKE, AND VERBALLY RESPONSIVE. NO SOB. (L) AC 18G PATENT, INTACT, AND FLUSHING WELL. PATIENT IS REQUESTING FOR COUGH MEDICINE. LUNG SOUNDS CLEAR UPON AUSCULTATION. C/O CHEST DISCOMFORT WHEN COUGHING. ON GREENHOUSE LABORER SHOWING SR 1ST DEGREE AV BLOCK BBB, HR 70s. WILL NOTIFY MD. SAFETY PRECAUTIONS IMPLEMENTED. BED LOCKED AND IN LOW POSITION. CALL LIGHT WITHIN REACH. WILL CONT. TO MONITOR.
[2019-09-14] MEDS ORDERED: GUAIFENESIN LA 600 MG TABLET.SA PO PRN (20:00)
--- NOTE | 2019-09-14 21:21 | NUR ---
2120 DR. MEDELLIN NOTIFIED OF DROP IN PATIENT'S PLATELET FROM 119 ON 09/13 TO 56 ON 09/14 WITH ORDER TO STOP LOVENOX. ORDER NOTED AND CARRIED OUT. NO SIGN OF ACTIVE BLEEDING NOTED. PT AAOX4 TALKING ON THE PHONE. DENIES ANY PAIN OR DISCOMFORT. CALL LIGHT PLACED WITHIN REACH AND INSTRUCTED TO CALL FOR ASSISTANCE.
--- NOTE | 2019-09-14 21:30 | NUR ---
RN NOTE: LOVENOX DOSE HELD AND NOT ADMINISTERED TO PATIENT. DR. MEDELLIN NOTIFIED OF DROP IN PLATELET COUNT FROM 119 ON 09/13/19 TO 56 09/14/19. NO SIGNS OF ACTIVE BLEEDING. PATIENT REFUSED DVT PUMPS DUE TO BLE EDEMA. RISKS AND BENEFITS EXPLAINED. PATIENT STILL REFUSED. WILL CONT. TO MONITOR FOR CHANGES. Addendum: 09/14/19 at 2149 by PADDY CRAIG RN LOVENOX RETURNED TO OMNICELL. Addendum: 09/15/19 at 0024 by PADDY CRAIG RN AT 0015, PATIENT WAS SEEN BY MARY FOFANA. GRADE FOREMAN MADE AWARE OF PATIENT'S REFUSAL TO DVT PUMPS. PER PATIENT, HER LEGS BECAME MORE SWOLLEN WHEN SHE WORE THEM AT [facility]. OFFERED AGAIN TO PATIENT. RISKS AND BENEFITS EXPLAINED. PATIENT STILL REFUSED. WILL CONT. TO MONITOR.
[2019-09-15] VITALS: BP 139/65
[2019-09-15] MEDS: methylPREDNISolone SOD SUCC 40 MG/ML VIAL IV SCH ×3 (03:16→17:11)
[2019-09-15 04:00] VITALS: BP 133/66
[2019-09-15] MEDS: BLOOD SUGAR DIAGNOSTIC 1 EACH STRIP IN SCH ×3 (05:37→17:01)
[2019-09-15] MEDS: INSULIN REGULAR, HUMAN 100 UNIT/ML 3 ML VIAL SQ PRN ×3 (05:52→17:06)
--- NOTE | 2019-09-15 07:00 | NUR ---
RN CLOSING NOTES: PATIENT IN BED, ASLEEP, BUT EASILY AROUSABLE. NO SOB. NO C/O PAIN. ON O2 AT 2LPM VIA NC SATTING 98%. SAFETY PRECAUTIONS IMPLEMENTED. BED LOCKED AND IN LOWEST POSITION. CALL LIGHT PLACED WITHIN REACH. WILL ENDORSE TO AM SHIFT NURSE FOR CONTINUITY OF CARE.
[2019-09-15 07:08] LABS: BASOPHILS % (AUTO) 0.1 % (0.0-2.0); HEMATOCRIT 29 % (33-45); HEMOGLOBIN 8.4 g/dL (11.5-14.8); LYMPHOCYTES # (AUTO) 0.4 /CMM (0.8-4.8); LYMPHOCYTES % (AUTO) 7.6 % (20.0-44.0); MEAN CORPUSCULAR HGB CONC 30 g/dl (31.0-36.0); MEAN CORPUSCULAR VOLUME 63 fL (82-100); MONOCYTES # (AUTO) 0.1 /CMM (0.1-1.30); MONOCYTES % (AUTO) 2.9 % (2.0-12.0); NEUTROPHILS # (AUTO) 4.5 /CMM (1.8-8.9); NEUTROPHILS % (AUTO) 89.4 % (43.0-81.0); PLATELET COUNT (AUTO) 60 /CMM (150-450); RED BLOOD CELL COUNT(AUTO) 4.55 MIL/uL (4.0-5.2); WHITE BLOOD COUNT (AUTO) 5.1 K/uL (4.3-11.0)
[2019-09-15 07:23] LABS: ALBUMIN 3.2 g/dL (3.4-5.0); BILIRUBIN,TOTAL 0.4 mg/dL (0.2-1.0); CALCIUM, SERUM 8.8 mg/dL (8.5-10.1); CREATININE 0.6 mg/dL (0.6-1.3); MAGNESIUM 1.8 mg/dL (1.8-2.4); PHOSPHORUS 4.2 mg/dL (2.5-4.9); POTASSIUM 4.1 mmol/L (3.5-5.1); TOTAL PROTEIN, SERUM 6.7 g/dL (6.4-8.2)
[2019-09-15 07:44] LABS: EOSINOPHILS % (MANUAL) 1 % (0-4); LYMPHOCYTES % (MANUAL) 8 % (16-48); MONOCYTES % (MANUAL) 3 % (0-11.0); NEUTROPHILS % (MANUAL) 88 (42-76)
[2019-09-15 08:00] VITALS: BP 134/65
--- NOTE | 2019-09-15 08:00 | NUR ---
TD/RN AM SHIFT INITIAL NOTES RECEIVED PT AWAKE LYING IN BED, PT A/O X 4, COMPLAINT OF PAIN IN BOTH ARMS RATED 9/10. ON 2L O2 VIA N/C SATURATING @ 97%, PT NOTED WITH DIMINISHED LUNG SOUNDS, AND DYSPNEA. ON TELE WITH SINUS RHYTHM WITH FIRST DEGREE AV BLOCK, HR 67. IV SITE WITH GOOD BLOOD RETURN, FLUSHED PATENT WITH NO S/S OF INFECTION. SCHEDULED AM MEDS TO BE GIVEN, INCLUDING PRN PAIN MEDS. CL WITHIN REACHED AND SAFETY MAINTAINED. ON GOING MONITORING. Addendum: 09/15/19 at 1312 by SCOUT BRIGGS RN ADDENDUM: SANTO CATHETER INTACT WITH YELLOW URINE OUTPUT.
[2019-09-15] MEDS: CALCIUM CARB 600MG /VIT D 1 EACH TABLET PO SCH (08:18)
[2019-09-15] MEDS: ASPIRIN EC 81 MG TABLET.DR PO SCH (08:19)
[2019-09-15] MEDS: LOSARTAN POTASSIUM 50 MG TABLET PO SCH (08:19)
[2019-09-15] MEDS: CELECOXIB 100 MG CAPSULE PO SCH ×2 (08:19→17:02)
[2019-09-15] MEDS: HYDROCODONE/APAP 5/325MG 1 EACH TABLET PO PRN ×2 (08:21→21:01)
[2019-09-15] MEDS: LEVOFLOXACIN (500MG) 500 MG TABLET PO SCH (10:26)
--- NOTE | 2019-09-15 10:50 | NUR ---
TD/RN ROUNDS - DR. MEDELLIN UPDATED PT'S CONDITION. PT SEEN & EXAMINED BY DR. MEDELLIN. NO NEW ORDER RECEIVED AT THIS TIME.
[2019-09-15] MEDS ORDERED: methylPREDNISolone SOD SUCC 40 MG/ML VIAL IV SCH (11:00)
[2019-09-15] MEDS ORDERED: INSULIN GLARGINE, 100 UNIT/ML CARTRIDGE SQ SCH (11:00)
--- NOTE | 2019-09-15 12:00 | NUR ---
MS1/RN NOON ROUNDS NO CHANGE OF CONDITION. MONITORING CONTINUED.
[2019-09-15] MEDS: INSULIN GLARGINE, 100 UNIT/ML CARTRIDGE SQ SCH ×2 (12:09→17:05)
[2019-09-15] MEDS: ALBUTEROL HALF STRENGTH 1.25 MG/3 ML VIAL.NEB NEB SCH ×2 (13:29→19:44)
[2019-09-15] MEDS: IPRATROPIUM NEB FS 0.5 MG/2.5 ML AMPUL.NEB NEB SCH ×2 (13:29→19:44)
[2019-09-15 16:00] VITALS: BP 144/76
--- NOTE | 2019-09-15 17:27 | NUR ---
MS1/RN AFTERNOON ROUNDS PM CARE PROVIDED, NO CHANGE OF CONDITION. ON GOING MONITORING.
--- NOTE | 2019-09-15 19:23 | NUR ---
MS1/RN AM SHIFT END NOTES ALL NEEDS MET. NO ACUTE CHANGE OF CONDITION NOTED DURING THE SHIFT. PT ENDORSED TO PM NURSE TO CONTINUE CARE. CL WITHIN REACHED AND SAFETY MAINTAINED.
--- NOTE | 2019-09-15 19:30 | NUR ---
MS RN NOTE PATIENT IN BED SITTING UP WATCHING PRINCESS ALVA NO S/S OF DISTRESS NOTED. PATIENT ON 2L NC BREATHING EVEN AND UNLABORED. PATIENT DENIES SOB OR CHEST PAIN AT THIS TIME. GOALS FOR SHIFT DISCUSSED WITH PATIENT, TO TAKE PHOTOS AND REST. PATIENT SANTO PATENT AND DRAINING TO GRAVITY WITH CLEAR YELLOW URINE, SAFETY PRECAUTIONS IN PLACE, RN WILL CONTINUE TO MONITOR FOR CHANGES.
[2019-09-15 20:00] VITALS: BP 137/66
--- NOTE | 2019-09-15 22:24 | NUR ---
MS RN NOTE REPORT AND TRANSFER OF CARE GIVEN OVER TO GUERITA SCOTT
[2019-09-16] MEDS: IPRATROPIUM NEB FS 0.5 MG/2.5 ML AMPUL.NEB NEB SCH ×3 (01:30→13:34)
[2019-09-16] MEDS: ALBUTEROL HALF STRENGTH 1.25 MG/3 ML VIAL.NEB NEB SCH ×3 (01:30→13:33)
[2019-09-16] MEDS: methylPREDNISolone SOD SUCC 40 MG/ML VIAL IV SCH ×2 (04:45→09:00)
[2019-09-16 05:00] VITALS: BP 144/76
[2019-09-16] MEDS: BLOOD SUGAR DIAGNOSTIC 1 EACH STRIP IN SCH ×4 (06:00→17:41)
[2019-09-16 06:32] LABS: BASOPHILS % (AUTO) 0.1 % (0.0-2.0); EOSINOPHILS % (AUTO) 0.1 % (0.0-6.0); HEMATOCRIT 29 % (33-45); HEMOGLOBIN 8.8 g/dL (11.5-14.8); LYMPHOCYTES # (AUTO) 0.5 /CMM (0.8-4.8); LYMPHOCYTES % (AUTO) 9.1 % (20.0-44.0); MEAN CORPUSCULAR HGB CONC 30 g/dl (31.0-36.0); MEAN CORPUSCULAR VOLUME 62 fL (82-100); MONOCYTES # (AUTO) 0.3 /CMM (0.1-1.30); MONOCYTES % (AUTO) 5.7 % (2.0-12.0); NEUTROPHILS # (AUTO) 5.1 /CMM (1.8-8.9); PLATELET COUNT (AUTO) 74 /CMM (150-450); RED BLOOD CELL COUNT(AUTO) 4.67 MIL/uL (4.0-5.2)
[2019-09-16] MEDS: ACETAMINOPHEN 325 MG TABLET PO PRN (06:33)
[2019-09-16 06:47] LABS: CALCIUM, SERUM 8.9 mg/dL (8.5-10.1); CREATININE 0.6 mg/dL (0.6-1.3); POTASSIUM 4.4 mmol/L (3.5-5.1)
[2019-09-16] MEDS: INSULIN REGULAR, HUMAN 100 UNIT/ML 3 ML VIAL SQ PRN ×3 (07:41→17:44)
--- NOTE | 2019-09-16 07:59 | NUR ---
RN OPENING NOTES REPORT RECEIVED FROM LICENSE CLERK RN. PT IS AWAKE AND ASKING WHEN IS SHE GOING HOME. PT STATES SHE IS HAVING SOME DIFFICULTIES BREATHING AND WOULD LIKE A BREATHING TX. CALLED RT TO ADMINISTER TX. BED IS IN LOWEST POSITION WITH CALL LIGHT IN REACH. NC ON WITH 1L O2. WILL CONTINUE TO MONITOR.
[2019-09-16 08:00] VITALS: BP 140/72
[2019-09-16] MEDS: LOSARTAN POTASSIUM 50 MG TABLET PO SCH (08:51)
[2019-09-16] MEDS: CELECOXIB 100 MG CAPSULE PO SCH ×2 (08:51→16:42)
[2019-09-16] MEDS: CALCIUM CARB 600MG /VIT D 1 EACH TABLET PO SCH (08:52)
[2019-09-16] MEDS: ASPIRIN EC 81 MG TABLET.DR PO SCH (08:52)
[2019-09-16] MEDS: INSULIN GLARGINE, 100 UNIT/ML CARTRIDGE SQ SCH (08:55)
[2019-09-16] MEDS: GENTAMICIN OPTH SOLN 0.3% 5 ML BOTTLE LEFTEYE SCH ×2 (09:00→17:00)
[2019-09-16] MEDS: LEVOFLOXACIN (500MG) 500 MG TABLET PO SCH (10:11)
[2019-09-16] MEDS ORDERED: PRED20TA PO (12:03)
[2019-09-16] MEDS ORDERED: LEVO500T75 PO (12:03)
[2019-09-16 16:00] VITALS: BP 139/59
[2019-09-16] MEDS ORDERED: methylPREDNISolone SOD SUCC 40 MG/ML VIAL IV SCH (17:00)
[2019-09-16] MEDS ORDERED: INSULIN GLARGINE, 100 UNIT/ML CARTRIDGE SQ SCH (17:00)
--- NOTE | 2019-09-16 17:15 | NUR ---
PT REFUSED D/C PHOTOS STATES IT IS TO HARD FOR HER RIGHT NOW AND SHE WOULD LIKE TO JUST GO HOME.
--- NOTE | 2019-09-16 18:38 | NUR ---
RN D/C NOTES PT EXITCARE GIVEN TO PT. PRESCRIPTION GIVEN TO PT. PT PICKED UP BY AMBULANCE BELONGINGS GIVEN TO PT AND LIST WAS SIGNED. IV REMOVED AND DRESSING PUT IN PLACE. VITALS TAKEN PRIOR TO LICENSED INSURANCE AGENT, PT TOLERATING ROOM AIR. PHOTOS NOT TAKEN DUE TO PT REFUSAL.
[2019-09-17] MEDS ORDERED: LOSARTAN POTASSIUM 50 MG TABLET PO SCH (09:00)
== END 2019-09-16 20:39 | disposition home health service (06) | DRG 193 ==
LOC: ER 21:18 → ICU 22:56 → TELE-TD 09-14 11:03 → MEDSG1 09-15 13:36
PROVIDERS: ADMIT Internal Medicine; ATTEND Internal Medicine
PROC: 5A09357 Assistance with Respiratory Ventilation, Less than 24 Consecutive Hours, Continuous Positive Airway Pressure (ICD-10-PCS; principal; 2019-09-13)
DX: J15.9 Unspecified bacterial pneumonia (principal); J96.01 Acute respiratory failure with hypoxia; J44.1 Chronic obstructive pulmonary disease with (acute) exacerbation; J44.0 Chronic obstructive pulmonary disease with (acute) lower respiratory infection; D68.59 Other primary thrombophilia; E83.42 Hypomagnesemia; Z87.891 Personal history of nicotine dependence; E11.42 Type 2 diabetes mellitus with diabetic polyneuropathy; E11.65 Type 2 diabetes mellitus with hyperglycemia; D50.9 Iron deficiency anemia, unspecified; E78.5 Hyperlipidemia, unspecified; F44.4 Conversion disorder with motor symptom or deficit; F32.9 Major depressive disorder, single episode, unspecified; E66.01 Morbid (severe) obesity due to excess calories; Z68.38 Body mass index [BMI] 38.0-38.9, adult; Z99.3 Dependence on wheelchair; I10 Essential (primary) hypertension
CPT/HCPCS: 36415; 36600; 71045-TC; 80048-TC; 80053-TC; 80061-TC; 82728-TC; 82803-TC; 82962-TC; 83540-TC; 83735-TC; 83880; 84100-TC; 84439-TC; 84443-TC; 84484-TC; 85025-TC; 87081-TC; 93307-TC; 94799-TC; G0378; J1650; J1815; J1940; J2920; J2930; J3475

== ENCOUNTER 2019-10-22 21:00 | Inpatient (IN) | payer MEDICARE, MEDICAID ==
[~2019-10-22] VITALS: Ht 167.6 cm; Wt 103.0 kg
[~2019-10-22 21:00] MED LIST changes: -FOLI1TAB16 PO; +LEVO500T75 PO; +PRED20TA PO; -RANI150T8 PO; -TRAM50TA2 PO
[2019-10-22] MEDS ORDERED: INSULIN REGULAR, HUMAN 100 UNIT/ML 10 ML VIAL ONE (21:15)
[2019-10-22] MEDS ORDERED: FUROSEMIDE 40 MG/4 ML VIAL ONE (21:15)
[2019-10-22] MEDS ORDERED: NITROGLYCERIN PACKET 1 GM PACKET ONE (21:15)
--- NOTE | 2019-10-22 21:26 | NUR ---
BIB EMS C/O SEVERE RESP DISTRESS, CP. PT ON CPAP & UPON ARRIVAL PLACED ON BIPAP BY RT PER DR. TEIXEIRA. PT PLACED ON WOOD MACHINE CARVER. ST. PT SEEN & EVAL'D BY DR. TEIXEIRA. MEDICATED ORDERED, PT DANIEL WELL. WILL CONT TO MONITOR.
[2019-10-22] MEDS ORDERED: INSULIN REGULAR, HUMAN 100 UNIT/ML 10 ML VIAL IV ONE (21:30)
[2019-10-22] MEDS ORDERED: FUROSEMIDE 40 MG/4 ML VIAL IV ONE (21:30)
[2019-10-22] MEDS ORDERED: NITROGLYCERIN PACKET 1 GM PACKET TD ONE (21:30)
[2019-10-22 21:45] LABS: ALANINE AMINOTRANSFERASE 28 U/L (12-78); ALBUMIN 3.4 g/dL (3.4-5.0); ALKALINE PHOSPHATASE 143 U/L (46-116); ASPARTATE AMINOTRANSFERASE 55 U/L (15-37); B-TYPE NATRIURETIC PEPTIDE 963 PG/ML (0-125); BILIRUBIN,DIRECT 0.1 mg/dL (0.0-0.2); BILIRUBIN,TOTAL 0.4 mg/dL (0.2-1.0); CARBON DIOXIDE 19 mmol/L (21-32); CHLORIDE 105 mmol/L (98-107); CREATININE 0.7 mg/dL (0.6-1.3); SODIUM SERUM 139 mmol/L (136-145); TOTAL PROTEIN, SERUM 7.9 g/dL (6.4-8.2); UREA NITROGEN, BLOOD 14 mg/dL (7-18)
[2019-10-22 21:47] LABS: GLUCOSE 383 mg/dL (74-106)
[2019-10-22] MEDS ORDERED: PIPERACILLIN /TAZOBACTAM 3.375 G VIAL IV ONE (21:50)
--- NOTE | 2019-10-22 21:55 | NUR ---
RT CALLED TO PT BEDSIDE FOR RESP DISTRESS. PT BIB RA ON CPAP 15L ON BREATHING TX. PLACED ON BIPAP 15/5 60% RATE 4 PER ER . Addendum: 10/22/19 at 2157 by KB SHIELDS RT Amended: Links added.
[2019-10-22 21:57] LABS: EOSINOPHILS % (AUTO) 2.3 % (0.0-6.0)
[2019-10-22] MEDS ORDERED: PIPERACILLIN /TAZOBACTAM 3.375 G in IV D5W 50 ML IV ONE (22:00)
[2019-10-22 22:01] LABS: BASOPHILS # (AUTO) 0.3 /CMM (0.0-0.2); BASOPHILS % (AUTO) 1.4 % (0.0-2.0); HEMATOCRIT 38 % (33-45); HEMOGLOBIN 10.8 g/dL (11.5-14.8); LYMPHOCYTES # (AUTO) 8.4 /CMM (0.8-4.8); LYMPHOCYTES % (AUTO) 45.6 % (20.0-44.0); MEAN CORPUSCULAR HGB CONC 29 g/dl (31.0-36.0); MEAN CORPUSCULAR VOLUME 67 fL (82-100); MONOCYTES # (AUTO) 2.1 /CMM (0.1-1.30); MONOCYTES % (AUTO) 11.3 % (2.0-12.0); NEUTROPHILS # (AUTO) 7.3 /CMM (1.8-8.9); NEUTROPHILS % (AUTO) 39.4 % (43.0-81.0); PLATELET COUNT (AUTO) 161 /CMM (150-450); WHITE BLOOD COUNT (AUTO) 18.4 K/uL (4.3-11.0)
--- NOTE | 2019-10-22 22:18 | NUR ---
CALLED [facility] TO HAVE IMAGE READ.
--- NOTE | 2019-10-22 22:26 | NUR ---
RN SPEAKING TO DAX, MARITA
--- NOTE | 2019-10-22 22:38 | NUR ---
CALLED AND LEFT A MESSAGE FOR DR MEDELLIN. AWAITING HIS CALL BACK
--- NOTE | 2019-10-22 22:40 | NUR ---
PT ASLEEP, EYES CLOSED BUT EASILY AWAKEN WITH VERBAL STIMULI. VSS. PT ABLE TO SPEAK WITH FULL SENTENCES. BIPAP INCTACT, NO RESP DISTRESS NOTED AT THIS TIME. PT ON EMBEDDED LINUX DEVELOPER, NSR. DENIES CP, DIZZINESS, N/V @ THIS TIME. WILL CONT TO MONITOR.
[2019-10-22 22:47] LABS: EOSINOPHILS % (MANUAL) 1 % (0-4); NEUTROPHILS % (MANUAL) 32 (42-76)
[2019-10-22 22:48] LABS: MONOCYTES % (MANUAL) 8 % (0-11.0)
[2019-10-22 22:49] LABS: LYMPHOCYTES % (MANUAL) 59 % (16-48)
[2019-10-22] MEDS ORDERED: ACETAMINOPHEN 325 MG TABLET PO PRN (23:00)
[2019-10-22] MEDS ORDERED: INSULIN GLARGINE, 100 UNIT/ML CARTRIDGE SQ SCH (23:00)
[2019-10-22] MEDS ORDERED: DEXTROSE 50%-WATER 50 ML DISP.SYRIN IV PRN (23:00)
[2019-10-22] MEDS ORDERED: IV 1/2NS 1000 ML 1,000 ML IV PRN (23:00)
[2019-10-22] MEDS: BLOOD SUGAR DIAGNOSTIC 1 EACH STRIP VI SCH (23:00)
[2019-10-22 23:13] LABS: ABG BASE EXCESS -8.9 mmol/L; ABG OXYGEN SATURATION 98.2 % (92.0-98.5); ABG PCO2 36.2 mmHg (35.0-45.0); ABG PH 7.288 (7.350-7.450); ABG PO2 168.8 mmHg (75.0-100.0); AaDO2 219.2 mmHg; MetHb 0.5 % (0.0-1.5); O2Hb 97.7 % (94.0-97.0); SITE, ABG Right Brachial; VENT MODE, BG S/4 4 15/5 60%
--- NOTE | 2019-10-22 23:18 | NUR ---
CALLED HOUSE SUP FOR ICU BED
--- NOTE | 2019-10-22 23:42 | NUR ---
REPORT GIVEN TO SONIA BUENO FOR KATY.
[2019-10-23] VITALS (60 sets, daily range): BP systolic 110–180; BP diastolic 45–96
[2019-10-23] MEDS ORDERED: CEFTRIAXONE 1 G VIAL ONE (00:39)
[2019-10-23] MEDS: CEFTRIAXONE 1 G in IV D5W 50 ML IV SCH ×2 (00:41→22:47)
[2019-10-23] MEDS: methylPREDNISolone SOD SUCC 40 MG/ML VIAL IV SCH ×5 (00:49→23:11)
[2019-10-23] MEDS: POLYETHYLENE GLYCOL 3350 17 GM POWD.PACK PO SCH ×2 (00:49→08:14)
[2019-10-23] MEDS: HEPARIN SODIUM, PORCINE 5000 UNITS/1 ML VIAL SQ SCH ×3 (00:51→21:10)
--- NOTE | 2019-10-23 01:00 | NUR ---
RN NOTES ADMITTED PATIENT FROM ER AOX3, VERBALLY RESPONSIVE ON NON REBREATHER MASK @ 15 LPM SATURATION 92%. CONNECTED ON BIPAP BY RT AT BEDSIDE AND SATURATION WENT UP TO 100%. PLACED TELE MONITOR REVEALS SR WITH FIRST DEGREE AVB WITH BBB. DENIES CHEST PAIN BUT COMPLAINING OF SHOULDER PAIN PER PATIENT SHES BEEN HAVING THIS PAIN SINCE THEN. NO APPARENT RESPIRATORY DISTRESS. PATIENT DX. PNA SECONDARY TO RESP. FAILURE. WITH IV SITE ON RH AND LAC G 20 INTACT AND APTENT AND STARTED IV ATB AND IVF NS @ 75 ML/HR TOLERATED WELL. BILATERAL LE EDEMA NOTED. ELEVATED EXT WITH PILLOWS. SKIN CHECKED DONE WITH CHARGE NURSE. PHOT TAKEN. SKIN IS INTACT. KEPT PT CLEAN AND DRY. WILL CONT. POC.
[2019-10-23] MEDS: HYDROCODONE/APAP 5/325MG 1 EACH TABLET PO PRN ×3 (01:10→22:30)
[2019-10-23] MEDS ORDERED: AZITHROMYCIN 500 MG VIAL ONE (01:28)
[2019-10-23] MEDS ORDERED: INSULIN GLARGINE, 100 UNIT/ML CARTRIDGE SQ ONE (01:32)
[2019-10-23] MEDS: AZITHROMYCIN 500 MG in IV D5W 250 ML IV SCH ×2 (01:38→23:41)
[2019-10-23] MEDS: *INSULIN REGULAR(HUMULIN R)HUM 100 UNIT/ML VIAL SQ PRN ×3 (01:39→22:22)
[2019-10-23] MEDS: IPRATROPIUM NEB FS 0.5 MG/2.5 ML AMPUL.NEB NEB SCH ×5 (03:47→20:04)
[2019-10-23] MEDS: ALBUTEROL FS 2.5 MG/0.5 ML VIAL.NEB NEB SCH ×5 (03:47→20:03)
[2019-10-23 04:49] LABS: CALCIUM, SERUM 8.4 mg/dL (8.5-10.1); CREATININE 0.7 mg/dL (0.6-1.3); POTASSIUM 4.3 mmol/L (3.5-5.1)
[2019-10-23 05:43] LABS: BASOPHILS % (AUTO) 0.2 % (0.0-2.0); EOSINOPHILS % (AUTO) 0.1 % (0.0-6.0); LYMPHOCYTES # (AUTO) 0.4 /CMM (0.8-4.8); MONOCYTES # (AUTO) 0.1 /CMM (0.1-1.30); MONOCYTES % (AUTO) 2.8 % (2.0-12.0)
[2019-10-23 05:51] LABS: HEMATOCRIT 29 % (33-45); HEMOGLOBIN 8.6 g/dL (11.5-14.8); LYMPHOCYTES % (AUTO) 9.9 % (20.0-44.0); MEAN CORPUSCULAR HGB CONC 30 g/dl (31.0-36.0); MEAN CORPUSCULAR VOLUME 65 fL (82-100); NEUTROPHILS # (AUTO) 3.8 /CMM (1.8-8.9); PLATELET COUNT (AUTO) 61 /CMM (150-450); RED BLOOD CELL COUNT(AUTO) 4.38 MIL/uL (4.0-5.2); WHITE BLOOD COUNT (AUTO) 4.4 K/uL (4.3-11.0)
[2019-10-23 06:16] LABS: LYMPHOCYTES % (MANUAL) 9 % (16-48); MONOCYTES % (MANUAL) 3 % (0-11.0); NEUTROPHILS % (MANUAL) 88 (42-76)
--- NOTE | 2019-10-23 06:53 | NUR ---
RN NOTES PATIENT ASLEEP WELL ON BED. BREATHING EVEN AND UNLABORED ON BIPAP. NO SIGNIFICANT CHANGES NOTED. AFEBRILE. VSS. INCONTINENT CARE RENDERED. ALL DUE MEDICINE ADMINISTERED WITH NO ASE PRESENT. PER PATIENT SHE FEELS MUCH BETTER THAN YESTERDAY. SANTO CATH DRAINED WITH ADEQ. URINE . KEPT OFF FROM THE FLOOR. KEPT PT CLEAN AND DRY. WILL CONT. TO MONITOR.
--- NOTE | 2019-10-23 07:35 | NUR ---
LIFE SCIENCE RESEARCH ASSISTANT OPENING NOTES RECEIVED REPORT FROM PM NURSE.PATIENT IN BED.AXOX3.BAHRAINI SPEAKING.UNDERSTAND SWISS.ON BIPAP SATURATING 100%. ON TELE MONITOR SR WITH FIRST DEGREE AVB WITH BBB. DENIES CHEST PAIN . NO APPARENT RESPIRATORY DISTRESS. IV SITE ON RH AND LAC G 20 INTACT AND PATENT WITH IVF NS @ 75 ML/HR TOLERATED WELL. BILATERAL LE EDEMA NOTED. ELEVATED BLL WITH PILLOWS.BED IS LOW AND IN LOCKED POSITION.CALL LIGHT IN REACH.BED ALARM ON.SRX3.WILL CONTINUE TO MONITOR.
[2019-10-23] MEDS: BLOOD SUGAR DIAGNOSTIC 1 EACH STRIP VI SCH ×4 (07:59→22:10)
--- NOTE | 2019-10-23 08:18 | NUR ---
WOUND CARE CONSULT: PT PRESENTS WITH REDNESS/RASH TO BREASTFOLD AREA, SOME REDNESS TO ABDOMINAL FOLDS, PERINEUM AND GROIN FOLDS, PRESENT ON ADMISSION. RECOMMENDATIONS MADE FOR SKIN PROTECTION AND CARE OF RASH AND REDNESS. DISCUSSED WITH NURSING STAFF. WILL SEE PRN. IN AGREEMENT WITH PLAN OF CARE. GURDEEP ISOFLEX LOW AIRLOSS BED TO BE PLACED. CURRENT KATELYN SCORE IS 14.
[2019-10-23] MEDS ORDERED: FUROSEMIDE 40 MG/4 ML VIAL IV ONE (08:30)
[2019-10-23] MEDS ORDERED: Z GUARD REMEDY 2 OZ OINT TP PRN (08:30)
[2019-10-23] MEDS: Z GUARD REMEDY 2 OZ OINT TP SCH (08:30)
--- NOTE | 2019-10-23 08:30 | NUR ---
COURT WORKER NOTE PATIENT OF FROM BIPAP.NO TOLERATING ROOM AIR.SATURATING 88-89%.PLACED ON NASAL CANULA 5L NOT TOLERATING STILL .SATURATING 90%.PLACED ON MASK WITH 6L SATURATING 94%.OK TO KEEP SPO2 >92% PER .
--- NOTE | 2019-10-23 08:45 | NUR ---
FOUNDATION ASSISTANT NOTE SEEN BY .UPDATED ABOUT PATIENT CONDITION WITH LABS AND VARIATION FROM ER RESULT AND AM RESULT.REDRAW DONE WITH AM LABS.NO NEED TO REPEAT BNP.GOT NEW ORDERS.SEEN BY UPDATED ABOUT PATIENT CONDITION.CONTINUE SAME ORDERS.WILL CONTINUE TO MONITOR.
[2019-10-23] MEDS ORDERED: INSULIN GLARGINE, 100 UNIT/ML CARTRIDGE SQ SCH (09:00)
[2019-10-23] MEDS ORDERED: INSU100V7 SQ (09:01)
--- NOTE | 2019-10-23 09:32 | NUR ---
SOCIAL MEDIA EDITOR NOTE PATIENT C/O CHEST PAIN 04/05.STAT EKG DONE.SR WITH BBB AND IST DEGREE AV BLOCK.BP IS 162/78. MADE AWARE.RELAYED EKG RESULT .GOT NEW ORDERS.WILL CONTINUE TO MONITOR.
[2019-10-23] MEDS: AMLODIPINE BESYLATE 5 MG TABLET PO SCH (09:54)
[2019-10-23] MEDS ORDERED: MAG HYDROX/AL HYDROX/SIMETH 30 ML UDC PO PRN (10:00)
[2019-10-23] MEDS: CLOTRIMAZOLE 1% 15 GM TUBE TP SCH ×2 (10:32→16:14)
[2019-10-23] MEDS: INSULIN REGULAR, HUMAN 100 UNIT/ML 3 ML VIAL SQ PRN ×2 (11:57→17:34)
[2019-10-23] MEDS ORDERED: HEPARIN SODIUM, PORCINE 5000 UNITS/1 ML VIAL SQ SCH (16:13)
[2019-10-23] MEDS: LACTOBACILLUS RHAMNOSUS GG 1 EACH CAP.SPRINK PO SCH (16:14)
[2019-10-23] MEDS: SOD FERRIC GLUC 125 MG in IV NS 0.9% 100 ML IV SCH (17:57)
--- NOTE | 2019-10-23 19:20 | NUR ---
RN NOTES PATIENT AWAKE WATCHING TV ON BED NO ACUTE RESPIRATORY DISTRESS. ON O2 4LPM VIA NC TOLERATED WELL SATURATION 96%, DENIES PAIN AT THIS TIME. PER PATIENT SHE TOOK PAIN MEDICINE EARLIER BECAUSE OF HER CHEST PAIN AND HER RIGHT SHOULDER PAIN. NO CHEST PAIN AT THIS TIME. IV SITE ON RH AND LAC INTACT AND PATENT, FLUSHED WELL. SANTO CATH DRAINED WITH YELLOW CLEAR COLOR URINE OFF FROM BED. KEPT PT CLEAN AND DRY ENCOURAGED PATIENT TO TURNED AND REPOSITIONED WHILE ON BED, PATIENT STATED THAT WHEN SHE LAY SUPINE OR ON HER RIGHT SIDE SHES IN SEVERE PAIN OR STARTED TO HAVE CHEST PAIN. RISK AND BENEFITS EDUCATED REGARDING THE IMPORTANCE OF TURNING AND REPOSITION ON BED. PATIENT IS WELL AWARE AND VERBALIZED UNDERSTANDING. WILL ENDORSED CONTINUITY OF CARE TO AM NURSE.
[2019-10-23] MEDS: INSULIN GLARGINE, 100 UNIT/ML CARTRIDGE SQ SCH (21:09)
--- NOTE | 2019-10-23 23:36 | NUR ---
RN NOTES TRANSFERRED PATIENT CARE TO HUNTER SCOTT FOR CONTINUITY OF CARE.
[2019-10-24] VITALS (19 sets, daily range): BP systolic 63–149; BP diastolic 45–79
[2019-10-24] MEDS: ALBUTEROL FS 2.5 MG/0.5 ML VIAL.NEB NEB SCH ×7 (00:01→23:23)
[2019-10-24] MEDS: IPRATROPIUM NEB FS 0.5 MG/2.5 ML AMPUL.NEB NEB SCH ×7 (00:01→23:23)
[2019-10-24] MEDS: methylPREDNISolone SOD SUCC 40 MG/ML VIAL IV SCH ×4 (04:12→22:14)
[2019-10-24 04:34] LABS: BASOPHILS % (AUTO) 0.1 % (0.0-2.0); HEMATOCRIT 29 % (33-45); HEMOGLOBIN 8.6 g/dL (11.5-14.8); LYMPHOCYTES # (AUTO) 0.5 /CMM (0.8-4.8); LYMPHOCYTES % (AUTO) 10.4 % (20.0-44.0); MEAN CORPUSCULAR HGB CONC 30 g/dl (31.0-36.0); MEAN CORPUSCULAR VOLUME 66 fL (82-100); MONOCYTES # (AUTO) 0.3 /CMM (0.1-1.30); MONOCYTES % (AUTO) 5.1 % (2.0-12.0); NEUTROPHILS # (AUTO) 4.5 /CMM (1.8-8.9); NEUTROPHILS % (AUTO) 84.4 % (43.0-81.0); PLATELET COUNT (AUTO) 67 /CMM (150-450); RED BLOOD CELL COUNT(AUTO) 4.41 MIL/uL (4.0-5.2); WHITE BLOOD COUNT (AUTO) 5.3 K/uL (4.3-11.0)
[2019-10-24 04:42] LABS: CREATININE 0.7 mg/dL (0.6-1.3); POTASSIUM 4.2 mmol/L (3.5-5.1)
[2019-10-24 05:44] LABS: LYMPHOCYTES % (MANUAL) 10 % (16-48); MONOCYTES % (MANUAL) 6 % (0-11.0); NEUTROPHILS % (MANUAL) 84 (42-76)
--- NOTE | 2019-10-24 07:15 | NUR ---
RN INITIAL NOTES RECEIVED PT AWAKE, A/OX4. ON 02 VIA NC AT 4LPM. NO RESPIRATORY DISTRESS NOTED. NO SOB NOTED. HOB ELEVATED. DENIES ANY PAIN. IV LINES IN PLACE. FLUSHED WITH NS. FC IN PLACE. NO HEMATURIA NOTED. BLE ELEVATED. PT COMFORTABLE. CALL LIGHT WITHIN REACH. WILL MONITOR
[2019-10-24] MEDS: ACETYLCYSTEINE 10% SOLN 400 MG/4 ML VIAL NEB SCH ×2 (07:35→23:23)
[2019-10-24] MEDS: BLOOD SUGAR DIAGNOSTIC 1 EACH STRIP VI SCH ×4 (07:48→22:29)
[2019-10-24] MEDS: METOLAZONE 2.5 MG TABLET PO SCH (08:25)
[2019-10-24] MEDS: POLYETHYLENE GLYCOL 3350 17 GM POWD.PACK PO SCH (08:25)
[2019-10-24] MEDS: HEPARIN SODIUM, PORCINE 5000 UNITS/1 ML VIAL SQ SCH ×2 (08:25→20:44)
[2019-10-24] MEDS: POTASSIUM CHLORIDE 20 MEQ TAB.PRT.SR PO SCH (08:25)
[2019-10-24] MEDS: LACTOBACILLUS RHAMNOSUS GG 1 EACH CAP.SPRINK PO SCH ×2 (08:25→16:21)
[2019-10-24] MEDS: FUROSEMIDE 40 MG TABLET PO SCH (08:25)
[2019-10-24] MEDS: INSULIN REGULAR, HUMAN 100 UNIT/ML 3 ML VIAL SQ PRN ×3 (08:26→16:54)
[2019-10-24] MEDS: AMLODIPINE BESYLATE 5 MG TABLET PO SCH (08:26)
[2019-10-24] MEDS: Z GUARD REMEDY 2 OZ OINT TP SCH (08:27)
[2019-10-24] MEDS: CLOTRIMAZOLE 1% 15 GM TUBE TP SCH ×2 (08:27→16:20)
[2019-10-24] MEDS: INSULIN GLARGINE, 100 UNIT/ML CARTRIDGE SQ SCH ×2 (08:27→20:41)
[2019-10-24] MEDS: SOD FERRIC GLUC 125 MG in IV NS 0.9% 100 ML IV SCH (13:31)
--- NOTE | 2019-10-24 17:00 | NUR ---
RN NOTES PT TRANSFERRED TO ROOM 107. PT A/O. ON 02 VIA NC AT 4LPM. NO RESPIRATORY DISTRESS NOTED. DENIES ANY PAIN. IV LINES IN PLACE. FC IN PLACE. REPORT GIVEN TO SONIA SUAREZ AT BEDSIDE. ALL PERTINENT INFO GIVEN. PT IN STABLE CONDITION
--- NOTE | 2019-10-24 17:43 | NUR ---
MS/RN NOTES RECEIVED PATIENT FROM ICU. PATIENT IS ALERT AND ORIENTED X2-3. MOLDOVAN SPEAKING. NO PAIN OR ACUTE DISTRESS AT THIS TIME. RESPIRATION EVEN AND UNLABORED. SKIN IS DRY WARM TO TOUCH. PATIENT ON O2 VIA NC AT 4LPM. IV ACCESS IN PLACE AND SANTO CATH WELL. ALL NEEDS ANTICIPATED. CALL LIGHT WITHIN REACHED. BED LOCKED AND IN LOWEST POSITION. WILL CONTINUE TO MONITOR CLOSELY.
--- NOTE | 2019-10-24 18:43 | NUR ---
MS/RN CLOSING NOTES PATIENT CONTINUES TO REMAIN IN STABLE CONDITION THROUGHOUT THE SHIFT. PROVIDED COMFORT AND SAFETY. NO PAIN OR ACUTE DISTRESS AT THIS TIME. RESPIRATION EVEN AND UNLABORED. SKIN IS DRY WARM TO TOUCH. IV ACCESS INTACT AND PATENT. FLUSHING WELL. NO S/S OF INFECTION OR INFILTRATION. ALL NEEDS ANTICIPATED. CALL LIGHT WITHIN REACHED. BED LOCKED AND LOWEST POSITION. WILL CONTINUE TO MONITOR CLOSELY. ENDORSED TO PM NURSE FOR KATY.
--- NOTE | 2019-10-24 19:42 | NUR ---
MS RN OPENING NOTE RECEIVED PATIENT IN BED. A/O X3. CHINESE SPEAKING, ABLE TO MAKE NEEDS KNOWN. ON OXYGEN 4L/MIN VIA NASAL CANNULA. RESPIRATIONS ARE EVEN AND UNLABORED. NO S/S SOB NOTED. DENIES PAIN AT THIS TIME. IN NO APPARENT DISTRESS. IV ACCESS IN R HAND #20 PATENT ND SALINE LOCKED, AND LAC #20 PATENT AND SALINE LOCKED. SANTO CATHETER IS PRESENT AND DRAINING TO GRAVITY, URINE IS YELLOW AND CLEAR. BED IS LOW AND LOCKED, ENGRAVER TENDER RIALS UP X2, HOB ELEVATED IN HIGH FOWLERS, BED ALARM ON. CALL LIGHT WITHIN REACH. WILL CONTINUE TO MONITOR.
--- NOTE | 2019-10-24 20:30 | NUR ---
MS RN NOTE ASKED PATIENT IS SHE WOULD LIKE PAIN MEDICATION D/T REPORTING PAIN 06/05. SHE DID NOT WANT ANY RIGHT NOW BUT WOULD LIKE SOME LATER. I INFORMED HER TO USE THE CALL LIGHT BUTTON IF SHE WOULD LIKE PAIN MEDICATION. I WILL CONTINUE TO ASK AT A LATER TIME.
--- NOTE | 2019-10-24 20:45 | NUR ---
MS RN NOTE DID NOT ADMINISTER HEPARIN 5,000 UNITS D/T LOW PLATELET COUNT.
[2019-10-24] MEDS: CEFTRIAXONE 1 G in IV D5W 50 ML IV SCH (22:15)
[2019-10-24] MEDS: *INSULIN REGULAR(HUMULIN R)HUM 100 UNIT/ML VIAL SQ PRN (22:34)
[2019-10-24] MEDS: AZITHROMYCIN 500 MG in IV D5W 250 ML IV SCH (22:52)
[2019-10-25] MEDS: ALBUTEROL FS 2.5 MG/0.5 ML VIAL.NEB NEB SCH ×6 (03:47→23:16)
[2019-10-25] MEDS: IPRATROPIUM NEB FS 0.5 MG/2.5 ML AMPUL.NEB NEB SCH ×6 (03:47→23:16)
[2019-10-25] MEDS: methylPREDNISolone SOD SUCC 40 MG/ML VIAL IV SCH ×2 (04:13→16:21)
[2019-10-25 05:00] VITALS: BP 143/60
[2019-10-25] MEDS: BLOOD SUGAR DIAGNOSTIC 1 EACH STRIP VI SCH ×4 (06:10→21:34)
[2019-10-25] MEDS: INSULIN REGULAR, HUMAN 100 UNIT/ML 3 ML VIAL SQ PRN ×3 (06:13→16:33)
--- NOTE | 2019-10-25 06:32 | NUR ---
MS RN CLOSING NOTE PATIENT IN BED. A/O X3. REMAINS ON OXYGEN 4L/MIN VIA NASAL CANNULA. RESPIRATIONS ARE EVEN AND UNLABORED. SOB NOTED WHEN TALKING. NO C/O PAIN. NO DISTRESS NOTED. IV ACCESS REMAINS IN R HAND #20 PATENT ND SALINE LOCKED, AND LAC #20 PATENT AND SALINE LOCKED. SANTO CATHETER REMAINS PRESENT AND DRAINING TO GRAVITY, URINE IS YELLOW AND CLEAR OUTPUT 2450. BED REMAINS LOW AND LOCKED, STEEL INSPECTOR RIALS UP X2, HOB ELEVATED IN HIGH FOWLERS, BED ALARM ON. CALL LIGHT WITHIN REACH. WILL ENDORSE TO NEXT SHIFT.
[2019-10-25 06:40] LABS: CALCIUM, SERUM 9.3 mg/dL (8.5-10.1); CREATININE 0.7 mg/dL (0.6-1.3); POTASSIUM 4.1 mmol/L (3.5-5.1)
[2019-10-25 06:46] LABS: HEMATOCRIT 30 % (33-45); HEMOGLOBIN 9.1 g/dL (11.5-14.8); LYMPHOCYTES # (AUTO) 0.4 /CMM (0.8-4.8); LYMPHOCYTES % (AUTO) 6.9 % (20.0-44.0); MEAN CORPUSCULAR HGB CONC 31 g/dl (31.0-36.0); MEAN CORPUSCULAR VOLUME 64 fL (82-100); MONOCYTES # (AUTO) 0.3 /CMM (0.1-1.30); MONOCYTES % (AUTO) 5.3 % (2.0-12.0); NEUTROPHILS # (AUTO) 4.7 /CMM (1.8-8.9); NEUTROPHILS % (AUTO) 87.8 % (43.0-81.0); RED BLOOD CELL COUNT(AUTO) 4.63 MIL/uL (4.0-5.2); WHITE BLOOD COUNT (AUTO) 5.4 K/uL (4.3-11.0)
[2019-10-25 06:52] LABS: PLATELET COUNT (AUTO) 60 /CMM (150-450)
[2019-10-25 08:00] VITALS: BP 134/65
[2019-10-25] MEDS: ACETYLCYSTEINE 10% SOLN 400 MG/4 ML VIAL NEB SCH ×3 (08:04→23:16)
[2019-10-25 08:14] LABS: EOSINOPHILS % (MANUAL) 1 % (0-4); LYMPHOCYTES % (MANUAL) 7 % (16-48); MONOCYTES % (MANUAL) 3 % (0-11.0); NEUTROPHILS % (MANUAL) 89 (42-76)
[2019-10-25] MEDS: POTASSIUM CHLORIDE 20 MEQ TAB.PRT.SR PO SCH (08:45)
[2019-10-25] MEDS: METOLAZONE 2.5 MG TABLET PO SCH (08:45)
[2019-10-25] MEDS: FUROSEMIDE 40 MG TABLET PO SCH (08:45)
[2019-10-25] MEDS: POLYETHYLENE GLYCOL 3350 17 GM POWD.PACK PO SCH (08:45)
[2019-10-25] MEDS: AMLODIPINE BESYLATE 5 MG TABLET PO SCH (08:46)
[2019-10-25] MEDS: LACTOBACILLUS RHAMNOSUS GG 1 EACH CAP.SPRINK PO SCH ×2 (08:46→16:21)
[2019-10-25] MEDS: Z GUARD REMEDY 2 OZ OINT TP SCH (08:47)
[2019-10-25] MEDS: CLOTRIMAZOLE 1% 15 GM TUBE TP SCH ×2 (08:47→16:21)
[2019-10-25] MEDS: HEPARIN SODIUM, PORCINE 5000 UNITS/1 ML VIAL SQ SCH ×2 (08:49→21:27)
[2019-10-25] MEDS: INSULIN GLARGINE, 100 UNIT/ML CARTRIDGE SQ SCH ×2 (09:43→21:30)
--- NOTE | 2019-10-25 10:15 | NUR ---
MS/RN NOTES MEDICATION HEPARIN WAS NOT GIVEN DUE TO LOW PLATELET COUNT. PATIENT CONTINUES TO REMAIN IN STABLE CONDITION. WILL CONTINUE TO MONITOR CLOSELY.
[2019-10-25] MEDS: SOD FERRIC GLUC 125 MG in IV NS 0.9% 100 ML IV SCH (13:40)
[2019-10-25 16:00] VITALS: BP 140/68
--- NOTE | 2019-10-25 18:23 | NUR ---
MS/RN CLOSING NOTES PATIENT CONTINUES TO REMAIN IN STABLE CONDITION THROUGHOUT THE SHIFT. PROVIDED COMFORT AND SAFETY. NO PAIN OR ACUTE DISTRESS AT THIS TIME. IV ACCESS IN R HAND #20 PATENT SND SALINE LOCKED. NO S/S OF INFECTION OR INFILTRATION. SANTO CATHETER NOTED WELL DRAINING WITH CLEAR YELLOW URINE. ALL NEEDS ANTICIPATED. CALL LIGHT WITHIN REACHED. BED LOCKED AND IN LOWEST POSITION. SAFETY MAINTAINED. WILL CONTINUE TO MONITOR CLOSELY. ENDORSED TO PM NURSE FOR KATY.
--- NOTE | 2019-10-25 19:45 | NUR ---
RN NOTES RECEIVED PATIENT IN BED. ALERT ORIENTED X3. REMAINS ON OXYGEN 4L/MIN VIA NASAL CANNULA. RESPIRATIONS ARE EVEN AND UNLABORED. SOB NOTED WHEN TALKING. NO C/O PAIN. NO DISTRESS NOTED. IV ACCESS REMAINS IN R HAND #20 PATENT ND SALINE LOCKED, AND LAC #20 PATENT AND SALINE LOCKED. SANTO CATHETER INTACT AND PATENT AND DRAINING TO GRAVITY, URINE IS YELLOW AND CLEAR OUTPUT.SAFETY MEASURES INPLACE, BED REMAINS LOW AND LOCKED, HOME CARE CHAPLAIN RIALS UP X2, HOB ELEVATED IN HIGH FOWLERS, BED ALARM ON. CALL LIGHT WITHIN EASY REACH. WILL CONTINUE TO MONITOR ACCORDINGLY.
[2019-10-25 20:00] VITALS: BP 145/66
[2019-10-25 20:01] VITALS: BP 145/66
[2019-10-25] MEDS: *INSULIN REGULAR(HUMULIN R)HUM 100 UNIT/ML VIAL SQ PRN (21:28)
[2019-10-25] MEDS: AZITHROMYCIN 250 MG TABLET PO SCH (21:32)
[2019-10-25 21:45] VITALS: BP 145/66
[2019-10-25] MEDS: CEFTRIAXONE 1 G in IV D5W 50 ML IV SCH (22:58)
[2019-10-26] MEDS: IPRATROPIUM NEB FS 0.5 MG/2.5 ML AMPUL.NEB NEB SCH ×6 (02:52→23:19)
[2019-10-26] MEDS: ALBUTEROL FS 2.5 MG/0.5 ML VIAL.NEB NEB SCH ×6 (02:52→23:20)
[2019-10-26] MEDS: methylPREDNISolone SOD SUCC 40 MG/ML VIAL IV SCH (05:19)
[2019-10-26 05:20] VITALS: BP 136/57
--- NOTE | 2019-10-26 06:26 | NUR ---
RN NOTES ALL NEEDS ATTENDED AND MET, ABLE TO REST AND SLEPT AT INTERVALS, DENIES ANY PAIN, REPOSITIONED FOR COMFORT, SAFETY MEASURES IN PLACED, ASPIRATION PRECAUTION EMPHASIZED, CALL LIGHT WITHIN EASY REACH, WILL ENDORSE TO AM NURSE FOR CONTINUITY OF CARE.
[2019-10-26 07:53] LABS: CALCIUM, SERUM 9.7 mg/dL (8.5-10.1); CREATININE 0.7 mg/dL (0.6-1.3); POTASSIUM 4.9 mmol/L (3.5-5.1)
[2019-10-26 08:00] VITALS: BP 142/55
[2019-10-26] MEDS: ACETYLCYSTEINE 10% SOLN 400 MG/4 ML VIAL NEB SCH ×3 (08:00→23:20)
[2019-10-26] MEDS: METOLAZONE 2.5 MG TABLET PO SCH (08:06)
[2019-10-26] MEDS: POTASSIUM CHLORIDE 20 MEQ TAB.PRT.SR PO SCH (08:06)
[2019-10-26] MEDS: AMLODIPINE BESYLATE 5 MG TABLET PO SCH (08:06)
[2019-10-26] MEDS: LACTOBACILLUS RHAMNOSUS GG 1 EACH CAP.SPRINK PO SCH ×2 (08:06→17:23)
[2019-10-26] MEDS: POLYETHYLENE GLYCOL 3350 17 GM POWD.PACK PO SCH (08:07)
[2019-10-26] MEDS: BLOOD SUGAR DIAGNOSTIC 1 EACH STRIP VI SCH ×4 (08:07→21:27)
[2019-10-26] MEDS: FUROSEMIDE 40 MG TABLET PO SCH (08:07)
[2019-10-26] MEDS: INSULIN GLARGINE, 100 UNIT/ML CARTRIDGE SQ SCH ×2 (08:15→21:28)
[2019-10-26] MEDS: INSULIN REGULAR, HUMAN 100 UNIT/ML 3 ML VIAL SQ PRN ×3 (08:18→17:48)
[2019-10-26] MEDS: HYDROCODONE/APAP 5/325MG 1 EACH TABLET PO PRN ×2 (09:03→21:20)
[2019-10-26] MEDS: Z GUARD REMEDY 2 OZ OINT TP SCH (09:57)
[2019-10-26] MEDS: CLOTRIMAZOLE 1% 15 GM TUBE TP SCH ×2 (09:57→17:23)
[2019-10-26] MEDS: LOSARTAN POTASSIUM 50 MG TABLET PO SCH (12:05)
[2019-10-26 12:43] LABS: ABG BASE EXCESS 6.1 mmol/L; ABG OXYGEN SATURATION 94.3 % (92.0-98.5); ABG PCO2 42.3 mmHg (35.0-45.0); ABG PH 7.473 (7.350-7.450); ABG PO2 73.7 mmHg (75.0-100.0); COHb 0.7 % (0.5-1.5); MetHb 0.3 % (0.0-1.5); O2Hb 93.4 % (94.0-97.0); SITE, ABG Right Radial; VENT MODE, BG NASAL CANNULA
[2019-10-26] MEDS: SOD FERRIC GLUC 125 MG in IV NS 0.9% 100 ML IV SCH (14:00)
[2019-10-26 16:00] VITALS: BP 127/65
--- NOTE | 2019-10-26 17:59 | NUR ---
RN CLOSING NOTE Patient remains A/Ox3. On 2L O2 via NC, no SOB complaints throughout shift. Orville removed per MD order. L FA 22G SL, patent, intact. Patient able to make needs known, call light within reach. Addendum: 10/26/19 at 1923 by TANYA HANDLEY RN orville removed @1700, f/u for urine output endorsed to Latonia SCOTT
--- NOTE | 2019-10-26 19:24 | NUR ---
MS RN RECEIVE PT IN BED AWAKE A/O X 3, 2LPM VIA NC 02 SAT 99%. RESPIRATIONS EVEN AND UNLABORED. NO S/S OF DISTRESS,WILL CONT TO MTR
[2019-10-26 19:59] VITALS: BP 99/67
[2019-10-26 21:00] VITALS: BP 110/62
[2019-10-26] MEDS: AZITHROMYCIN 250 MG TABLET PO SCH (21:19)
[2019-10-26] MEDS: *INSULIN REGULAR(HUMULIN R)HUM 100 UNIT/ML VIAL SQ PRN (21:33)
[2019-10-26] MEDS: CEFTRIAXONE 1 G in IV D5W 50 ML IV SCH (22:05)
[2019-10-27] MEDS: ALBUTEROL FS 2.5 MG/0.5 ML VIAL.NEB NEB SCH ×3 (02:45→11:47)
[2019-10-27] MEDS: IPRATROPIUM NEB FS 0.5 MG/2.5 ML AMPUL.NEB NEB SCH ×3 (02:45→11:47)
[2019-10-27 05:00] VITALS: BP 99/65
--- NOTE | 2019-10-27 06:30 | NUR ---
MS RN PT ASLEEP AND EASILY AWAKEN ON 2LPM VIA NC 02 SAT 97%, NO C/O OF PAIN AT THIS TIME. NEEDS ATTENDED AND ANTICIPATED, AM CARE RENDERED, ASSISTED REPOSITION Q2HR. KEPT CLEAN, DRY AND COMFORTABLE AT ALL TIMES. NO SOB. RESPIRATION EVEN AND UNLABORED. SAFETY MEASURES AT ALL TIMES. WILL ENDORSE PLAN OF CARE.
[2019-10-27 07:03] LABS: BASOPHILS % (AUTO) 0.1 % (0.0-2.0); EOSINOPHILS % (AUTO) 2.3 % (0.0-6.0); HEMATOCRIT 37 % (33-45); HEMOGLOBIN 11.1 g/dL (11.5-14.8); LYMPHOCYTES # (AUTO) 1.6 /CMM (0.8-4.8); LYMPHOCYTES % (AUTO) 17.2 % (20.0-44.0); MEAN CORPUSCULAR HGB CONC 30 g/dl (31.0-36.0); MEAN CORPUSCULAR VOLUME 66 fL (82-100); MONOCYTES % (AUTO) 11.5 % (2.0-12.0); NEUTROPHILS # (AUTO) 6.2 /CMM (1.8-8.9); NEUTROPHILS % (AUTO) 68.9 % (43.0-81.0); PLATELET COUNT (AUTO) 78 /CMM (150-450); RED BLOOD CELL COUNT(AUTO) 5.61 MIL/uL (4.0-5.2)
[2019-10-27 07:13] LABS: CALCIUM, SERUM 9.3 mg/dL (8.5-10.1); CREATININE 0.7 mg/dL (0.6-1.3); POTASSIUM 3.6 mmol/L (3.5-5.1)
[2019-10-27] MEDS: BLOOD SUGAR DIAGNOSTIC 1 EACH STRIP VI SCH ×2 (07:30→12:00)
[2019-10-27 07:42] LABS: BAND % (MANUAL) 1 % (0.0-5.0); EOSINOPHILS % (MANUAL) 3 % (0-4); LYMPHOCYTES % (MANUAL) 22 % (16-48); MONOCYTES % (MANUAL) 6 % (0-11.0); NEUTROPHILS % (MANUAL) 68 (42-76)
[2019-10-27] MEDS: ACETYLCYSTEINE 10% SOLN 400 MG/4 ML VIAL NEB SCH (07:51)
[2019-10-27 08:00] VITALS: BP 133/76
[2019-10-27] MEDS: INSULIN GLARGINE, 100 UNIT/ML CARTRIDGE SQ SCH (08:48)
[2019-10-27] MEDS: POTASSIUM CHLORIDE 20 MEQ TAB.PRT.SR PO SCH (08:49)
[2019-10-27] MEDS: POLYETHYLENE GLYCOL 3350 17 GM POWD.PACK PO SCH ×2 (08:49→09:00)
[2019-10-27] MEDS: FUROSEMIDE 40 MG TABLET PO SCH (08:49)
[2019-10-27] MEDS: LACTOBACILLUS RHAMNOSUS GG 1 EACH CAP.SPRINK PO SCH (08:49)
[2019-10-27] MEDS: INSULIN REGULAR, HUMAN 100 UNIT/ML 3 ML VIAL SQ PRN ×2 (08:49→13:14)
[2019-10-27 08:51] VITALS: BP 133/76
[2019-10-27] MEDS: CLOTRIMAZOLE 1% 15 GM TUBE TP SCH (08:51)
[2019-10-27] MEDS: LOSARTAN POTASSIUM 50 MG TABLET PO SCH (08:51)
[2019-10-27] MEDS: Z GUARD REMEDY 2 OZ OINT TP SCH (08:51)
[2019-10-27] MEDS ORDERED: LEVOFLOXACIN (500MG) 500 MG TABLET PO SCH (09:00)
[2019-10-27] MEDS ORDERED: FURO-145 PO (11:07)
[2019-10-27] MEDS ORDERED: POTA10TA PO (11:07)
[2019-10-27] MEDS ORDERED: LEVO500T75 PO (11:07)
--- NOTE | 2019-10-27 15:00 | NUR ---
MS RN DC NOTE Received DC order for patient to home with home health from Dr. Jerez. community engagement manager Hanna gregory. Patient states she lives alone but her granddaughter comes to take care of her. She uses a wheelchair. patient remains A/Ox3-4. On 2L O2, SPO2 95%, no SOB or respiratory distress noted upon DC. Educated patient on emergency symptoms. Provided patient with prescription, patient says her granddaughter will get the meds. Wound/redness pictures taken. Belongings checklist signed. IV removed cath intact, pressure dressing applied.
== END 2019-10-27 15:18 | disposition home health service (06) | DRG 871 ==
LOC: ER 21:00 → ICU 23:31 → MEDSG1 10-24 17:07
PROVIDERS: ADMIT Internal Medicine; ATTEND Internal Medicine
PROC: 5A09357 Assistance with Respiratory Ventilation, Less than 24 Consecutive Hours, Continuous Positive Airway Pressure (ICD-10-PCS; principal; 2019-10-23)
DX: A41.9 Sepsis, unspecified organism (principal); J18.9 Pneumonia, unspecified organism; J96.01 Acute respiratory failure with hypoxia; I50.31 Acute diastolic (congestive) heart failure; J44.0 Chronic obstructive pulmonary disease with (acute) lower respiratory infection; J44.1 Chronic obstructive pulmonary disease with (acute) exacerbation; E87.1 Hypo-osmolality and hyponatremia; E87.2 Acidosis; E11.9 Type 2 diabetes mellitus without complications; E78.5 Hyperlipidemia, unspecified; G47.33 Obstructive sleep apnea (adult) (pediatric); I11.0 Hypertensive heart disease with heart failure; E66.9 Obesity, unspecified; Z68.36 Body mass index [BMI] 36.0-36.9, adult; I27.81 Cor pulmonale (chronic); D50.9 Iron deficiency anemia, unspecified; Z99.81 Dependence on supplemental oxygen; G62.9 Polyneuropathy, unspecified; Z87.891 Personal history of nicotine dependence
CPT/HCPCS: 36415; 36600; 71045-TC; 80048-TC; 80076-TC; 82803-TC; 82962-TC; 83605-TC; 83880; 84484-TC; 85025-TC; 85730-TC; 87040-TC; 87081-TC; 94760-TC; 94799-TC; 99082-TC; G0378; J0456; J0696; J1644; J1815; J1940; J2543; J2916; J2920; J3490; J7030; J7050; J7060

== ENCOUNTER 2020-04-01 01:44 | Emergency (ER) | payer OTHER ==
[~2020-04-01] VITALS: Ht 165.1 cm; Wt 108.0 kg
[~2020-04-01 01:44] MED LIST changes: -ASPI-605 PO; +FURO-145 PO; +INSU100V7 SQ; +POTA10TA PO; -PRED20TA PO
[2020-04-01] MEDS ORDERED: MORPHINE SULFATE INJ 2 MG/ML DISP.SYRIN ONE (02:06)
[2020-04-01] MEDS ORDERED: ONDANSETRON HCL/PF 4 MG/2 ML VIAL ONE (02:06)
--- NOTE | 2020-04-01 02:22 | NUR ---
PT BIBRA C/O LOWER R LEG PAIN, L KNEE, AND R ELBOW PAIN S/P FALLING FROM WHEELCHAIR WHILE TRYING TO "GET MY BED SHEETS" PT C/O PAIN, PLACED ON MONITOR AND PULSE OX. VSS. IV LINE ITITIATED, MEDS GIVEN, MD AT BEDSIDE FOR EVAL. NO ACUTE DISTRESS NOTED. WILL COTNINUE TO MONITOR.
[2020-04-01 02:24] LABS: BASOPHILS % (AUTO) 0.5 % (0.0-2.0); EOSINOPHILS % (AUTO) 1.4 % (0.0-6.0); HEMATOCRIT 36 % (33-45); HEMOGLOBIN 11.6 g/dL (11.5-14.8); LYMPHOCYTES # (AUTO) 0.7 /CMM (0.8-4.8); LYMPHOCYTES % (AUTO) 11.2 % (20.0-44.0); MEAN CORPUSCULAR HGB CONC 32 g/dl (31.0-36.0); MEAN CORPUSCULAR VOLUME 74 fL (82-100); MONOCYTES # (AUTO) 0.7 /CMM (0.1-1.30); MONOCYTES % (AUTO) 10.5 % (2.0-12.0); NEUTROPHILS # (AUTO) 4.8 /CMM (1.8-8.9); NEUTROPHILS % (AUTO) 76.4 % (43.0-81.0); PLATELET COUNT (AUTO) 84 /CMM (150-450); RED BLOOD CELL COUNT(AUTO) 4.95 MIL/uL (4.0-5.2); WHITE BLOOD COUNT (AUTO) 6.3 K/uL (4.3-11.0)
[2020-04-01] MEDS: MORPHINE SULFATE INJ 2 MG/ML DISP.SYRIN IV ONE (02:26)
[2020-04-01] MEDS: IV NS 0.9% 500 ML BAG IV ONE (02:26)
[2020-04-01] MEDS: ONDANSETRON HCL/PF 4 MG/2 ML VIAL IVP ONE (02:27)
[2020-04-01 02:33] LABS: CALCIUM, SERUM 8.8 mg/dL (8.5-10.1); CREATININE 0.9 mg/dL (0.6-1.3)
[2020-04-01 02:40] LABS: ALBUMIN 3.4 g/dL (3.4-5.0); BILIRUBIN,DIRECT 0.1 mg/dL (0.0-0.2); BILIRUBIN,TOTAL 0.5 mg/dL (0.2-1.0); TOTAL PROTEIN, SERUM 7.2 g/dL (6.4-8.2)
[2020-04-01 02:44] LABS: LYMPHOCYTES % (MANUAL) 8 % (16-48); MONOCYTES % (MANUAL) 7 % (0-11.0); NEUTROPHILS % (MANUAL) 85 (42-76)
--- NOTE | 2020-04-01 02:50 | NUR ---
brought to ct
--- NOTE | 2020-04-01 03:10 | NUR ---
brought back from ct
--- NOTE | 2020-04-01 04:33 | NUR ---
Patient is resting comfortably in bed. Easily aroused. VSS.
--- NOTE | 2020-04-01 05:56 | NUR ---
CALLED [facility] FOR TRANSPORTATION. CONFIRMATION [phone], WILL CALL BACK WITH ETA
--- NOTE | 2020-04-01 06:37 | NUR ---
[facility] ETA [phone]
--- NOTE | 2020-04-01 07:41 | NUR ---
PT IS MEDICALLY CLEAR FOR D/C. Patient discharged to home in stable condition. Written and verbal after care instructions given. Patient verbalizes understanding of instruction. PT WAS PICKED UP W/ ALL HER BELONGINGS VIA GURNEY IN STABLE CONDITION W/ [facility]
[2020-04-01 07:43] VITALS: BP 138/72
== END 2020-04-01 07:44 | disposition home or self-care (01) ==
LOC: ER 01:45
DX: S80.12XA Contusion of left lower leg, initial encounter (principal); S80.11XA Contusion of right lower leg, initial encounter; S30.0XXA Contusion of lower back and pelvis, initial encounter; I10 Essential (primary) hypertension; J45.909 Unspecified asthma, uncomplicated; E11.9 Type 2 diabetes mellitus without complications; R51 Headache; Z60.2 Problems related to living alone; Z79.899 Other long term (current) drug therapy; Z79.4 Long term (current) use of insulin; Z79.84 Long term (current) use of oral hypoglycemic drugs; W01.0XXA Fall on same level from slipping, tripping and stumbling without subsequent striking against object, initial encounter; Y93.89 Activity, other specified; Y92.89 Other specified places as the place of occurrence of the external cause; Y99.8 Other external cause status
CPT/HCPCS: 36415; 70450; 71045; 72131; 80048; 80076; 84484; 85025; 85730; 93005; 96374; 96375; 99285; J2270; J2405

== ENCOUNTER 2020-05-12 01:39 | Emergency (ER) | payer OTHER, MEDICAID ==
[~2020-05-12] VITALS: Ht 165.1 cm; Wt 107.5 kg
--- NOTE | 2020-05-12 01:50 | NUR ---
BIB 839 FROM HOME FOR C/O R SHOULDER, L ARM AND LOWER BACK PAIN S/P GLF AT 0100. PT DENIES KO. DENIES HT. PT AAOX4, RESPIRATIONS EVEN AND UNLABORED ON RA W/ NAD NOTED. PT CONNECTED TO THE MONITOR AND POX
[2020-05-12] MEDS ORDERED: ONDANSETRON HCL/PF 4 MG/2 ML VIAL IVP ONE (02:00)
[2020-05-12] MEDS ORDERED: MORPHINE SULFATE INJ 2 MG/ML DISP.SYRIN IV ONE (02:00)
[2020-05-12] MEDS ORDERED: MORPHINE SULFATE INJ 2 MG/ML DISP.SYRIN ONE ×2 (02:04→04:35)
[2020-05-12] MEDS ORDERED: ONDANSETRON HCL/PF 4 MG/2 ML VIAL ONE (02:04)
[2020-05-12 02:23] LABS: EOSINOPHILS % (AUTO) 2.7 % (0.0-6.0); HEMATOCRIT 37 % (33-45); HEMOGLOBIN 11.2 g/dL (11.5-14.8); LYMPHOCYTES % (AUTO) 19.4 % (20.0-44.0); MEAN CORPUSCULAR HGB CONC 31 g/dl (31.0-36.0); MEAN CORPUSCULAR VOLUME 72 fL (82-100); MONOCYTES # (AUTO) 0.7 /CMM (0.1-1.30); MONOCYTES % (AUTO) 13.6 % (2.0-12.0); NEUTROPHILS # (AUTO) 3.3 /CMM (1.8-8.9); NEUTROPHILS % (AUTO) 64.3 % (43.0-81.0); PLATELET COUNT (AUTO) 90 /CMM (150-450); RED BLOOD CELL COUNT(AUTO) 5.11 MIL/uL (4.0-5.2); WHITE BLOOD COUNT (AUTO) 5.1 K/uL (4.3-11.0)
[2020-05-12 02:30] LABS: CALCIUM, SERUM 9.1 mg/dL (8.5-10.1); CARBON DIOXIDE 24 mmol/L (21-32); CHLORIDE 100 mmol/L (98-107); CREATININE 0.7 mg/dL (0.6-1.3); GLUCOSE 234 mg/dL (74-106); POTASSIUM 4.3 mmol/L (3.5-5.1); SODIUM SERUM 135 mmol/L (136-145); UREA NITROGEN, BLOOD 23 mg/dL (7-18)
--- NOTE | 2020-05-12 03:06 | NUR ---
PATIENT IS SLEEPING. EASILY AROUSABLE. CONNECTED TO MONITOR. CALL LIGHT WITHIN REACH. SITTER NEAR BEDSIDE. BREATHING EVENLY AND UNLABORED ON ROOM AIR.
[2020-05-12 03:29] LABS: EOSINOPHILS % (MANUAL) 1 % (0-4); LYMPHOCYTES % (MANUAL) 16 % (16-48); MONOCYTES % (MANUAL) 9 % (0-11.0); NEUTROPHILS % (MANUAL) 74 (42-76)
--- NOTE | 2020-05-12 04:31 | NUR ---
PATIENT C/O LOWER BACK PAIN MD NOTIFIED. MD VERBAL ORDER TO GIVE 2MG OF MORPHINE VIA IV. WILL MEDICATE PATIENT.
--- NOTE | 2020-05-12 04:37 | NUR ---
PATIENT MEDICATED ORDERED.
--- NOTE | 2020-05-12 04:41 | NUR ---
Negro kothari in [facility] - 05/12/20 at 0540 by OLIVIER ASHA TOURE FOR PSYCH EVAL LEFT MESSAGE.
--- NOTE | 2020-05-12 05:45 | NUR ---
ATTEMPTED TO CALL PT'S VICKY HENSON. NO ANSWER
--- NOTE | 2020-05-12 05:55 | NUR ---
ATTEMPTED TO CALL PT'S VICKY HENSON. NO ANSWER
--- NOTE | 2020-05-12 06:28 | NUR ---
ATTEMPTED TO CALL PT'S VICKY HENSON. NO ANSWER
--- NOTE | 2020-05-12 07:17 | NUR ---
ATTEMPTED TO CALL AGAIN VICKY, PT'S GRAND DAUGHTER. LEFT A VOICEMAIL. NO ANSWER
--- NOTE | 2020-05-12 08:07 | NUR ---
CALLED LEFT MSG
--- NOTE | 2020-05-12 08:47 | NUR ---
SW NOTE: Light Armored Vehicle Officer contacted pt's listed emergency contact, Angela ([phone]) for discharge planning. Light Armored Vehicle Officer left voicemail for pt's emergency contact, asking contact to call Light Armored Vehicle Officer back as soon as possible. Light Armored Vehicle Officer asked pt if she could go home on a taxi. Pt let Light Armored Vehicle Officer know she is not able to walk on her own, and lives on the third floor. Light Armored Vehicle Officer asked pt if she could identify any additional emergency contacts to help arrange her discharge. Pt reported her granddaughter is her only contact, but she does not get home until [phone]. Light Armored Vehicle Officer followed up with ER nursing staff regarding pt's discharge plan and informed them that the pt would not be able to discharge home on her own. Light Armored Vehicle Officer will follow up with pt's emergency contact/granddaughter for discharge planning. Pt requested breakfast and coffee; Light Armored Vehicle Officer endorsed to ER nursing staff.
--- NOTE | 2020-05-12 09:30 | NUR ---
PT SLEEPING ON MONITOR WE/ STABLE VITALS.
--- NOTE | 2020-05-12 13:29 | NUR ---
[id number] PT GRANDDAUGHTER WILL TRANSPORT PT
[2020-05-12] MEDS ORDERED: ACETAMINOPHEN 325 MG TABLET ONE (14:20)
[2020-05-12] MEDS ORDERED: ACETAMINOPHEN 325 MG TABLET PO ONE (14:30)
--- NOTE | 2020-05-12 14:46 | NUR ---
Patient discharged to home in stable condition. Written and verbal after care instructions given. Patient verbalizes understanding of instruction.IV removed. Catheter intact and site benign. Pressure and 4x4 applied to site. No bleeding noted.
[2020-05-12 14:49] VITALS: BP 138/68
[2020-05-15] MEDS ORDERED: MORPHINE SULFATE INJ 2 MG/ML DISP.SYRIN IV ONE (19:30)
== END 2020-05-12 14:49 | disposition home or self-care (01) ==
LOC: ER 01:39
DX: S40.012A Contusion of left shoulder, initial encounter (principal); S40.011A Contusion of right shoulder, initial encounter; S30.0XXA Contusion of lower back and pelvis, initial encounter; R51 Headache; I10 Essential (primary) hypertension; J45.909 Unspecified asthma, uncomplicated; E11.9 Type 2 diabetes mellitus without complications; Z98.890 Other specified postprocedural states; Z79.899 Other long term (current) drug therapy; Z79.4 Long term (current) use of insulin; Z79.84 Long term (current) use of oral hypoglycemic drugs; W18.39XA Other fall on same level, initial encounter; Y93.89 Activity, other specified; Y92.091 Bathroom in other non-institutional residence as the place of occurrence of the external cause; Y99.8 Other external cause status
CPT/HCPCS: 36415; 70450; 71045; 72100; 72125; 73030 ×2; 80048; 84484; 85025; 96374; 96375; 99285; J2270 ×2; J2405

== ENCOUNTER 2020-06-08 07:24 | Emergency (ER) | payer OTHER, MEDICAID ==
[~2020-06-08] VITALS: Ht 165.1 cm; Wt 106.6 kg
--- NOTE | 2020-06-08 07:25 | NUR ---
PT BIBRA 88 FROM HOME C/O BILATERAL KNEE PAIN S/P GLF. PT IS AAOX4, NOT IN RESPIRATORY DISTRESS, V/S STABLE, KEPT RESTED AND COMFORTABLE. WILL CONTINUE TO MONITOR.
--- NOTE | 2020-06-08 07:30 | NUR ---
AT BEDSIDE FOR EVAL.
[2020-06-08] MEDS ORDERED: HYDROCODONE/APAP 5/325MG 1 EACH TABLET ONE (07:39)
--- NOTE | 2020-06-08 07:57 | NUR ---
VESSEL MASTER AT BEDSIDE FOR XRAY.
[2020-06-08] MEDS ORDERED: HYDROCODONE/APAP 5/325MG 1 EACH TABLET PO ONE (08:00)
--- NOTE | 2020-06-08 10:17 | NUR ---
AMBULANCE ETA [phone]
--- NOTE | 2020-06-08 10:26 | NUR ---
CALLED [facility] FOR TRANSPORT TO [facility]. ETA [phone]. TRIP NUMBER [id number].
--- NOTE | 2020-06-08 11:40 | NUR ---
Patient discharged to home in stable condition. Written and verbal after care instructions given. Patient verbalizes understanding of instruction.
--- NOTE | 2020-06-08 11:48 | NUR ---
REPORT GIVEN TO EMT FOR PT TRANSFER BACK HOME.
[2020-06-08 11:49] VITALS: BP 126/72
== END 2020-06-08 11:49 | disposition home or self-care (01) ==
LOC: ER 07:33
DX: S80.02XA Contusion of left knee, initial encounter (principal); S80.01XA Contusion of right knee, initial encounter; M54.5 Low back pain; I10 Essential (primary) hypertension; J45.909 Unspecified asthma, uncomplicated; E11.9 Type 2 diabetes mellitus without complications; M19.90 Unspecified osteoarthritis, unspecified site; Z98.890 Other specified postprocedural states; Z79.899 Other long term (current) drug therapy; Z79.84 Long term (current) use of oral hypoglycemic drugs; W18.39XA Other fall on same level, initial encounter; Y93.89 Activity, other specified; Y92.89 Other specified places as the place of occurrence of the external cause; Y99.8 Other external cause status
CPT/HCPCS: 72110-TC; 73564-TC

== ENCOUNTER 2020-06-19 07:03 | Emergency (ER) | payer OTHER, MEDICAID ==
[~2020-06-19] VITALS: Ht 165.1 cm; Wt 106.6 kg
--- NOTE | 2020-06-19 07:15 | NUR ---
PT AAOX4. BIB EMS C/O L ARM PAIN AND LOW BACK PAIN S/P GLF AT HOME. DENIES KO, PLACED ON MONITOR AND PULSE OX. VSS. MD AT BEDSIDE FOR EVAL. AWAITING ORDERS.
[2020-06-19] MEDS ORDERED: HYDROCODONE/APAP 5/325MG 1 EACH TABLET ONE (07:16)
--- NOTE | 2020-06-19 07:26 | NUR ---
ENDORSEMENT RECEIVED FROM YAYO SCOTT FOR KATY
[2020-06-19] MEDS ORDERED: HYDROCODONE/APAP 5/325MG 1 EACH TABLET PO ONE (07:30)
--- NOTE | 2020-06-19 08:31 | NUR ---
CALLED AMBER AND LEFT A MESSAGE ASKING HER TO RETURN OUR CALL
--- NOTE | 2020-06-19 08:42 | NUR ---
BREAKFAST [facility] PROVIDED. PATIENT TOLERATING PO WELL.
--- NOTE | 2020-06-19 09:19 | NUR ---
HOWARD [place]. RESERVATION # [id number]. 1-4 HOURS ETA
--- NOTE | 2020-06-19 09:27 | NUR ---
call back from ambulance tx,eta 1030
--- NOTE | 2020-06-19 10:59 | NUR ---
Patient picked up by [facility] [employer] ( ) going to home in stable condition. Written and verbal after care instructions given. Patient verbalizes understanding of instruction.
[2020-06-19 11:00] VITALS: BP 147/61
== END 2020-06-19 11:12 | disposition home or self-care (01) ==
LOC: ER 07:05
DX: M25.512 Pain in left shoulder (principal); G89.29 Other chronic pain; M54.5 Low back pain; M25.561 Pain in right knee; M25.562 Pain in left knee; I10 Essential (primary) hypertension; E11.9 Type 2 diabetes mellitus without complications; J45.909 Unspecified asthma, uncomplicated; M19.90 Unspecified osteoarthritis, unspecified site; Z98.890 Other specified postprocedural states; Z79.899 Other long term (current) drug therapy; Z79.4 Long term (current) use of insulin; Z79.84 Long term (current) use of oral hypoglycemic drugs; W18.39XA Other fall on same level, initial encounter; Y93.89 Activity, other specified; Y92.89 Other specified places as the place of occurrence of the external cause; Y99.8 Other external cause status
CPT/HCPCS: 73030-TC

== ENCOUNTER 2020-07-24 22:39 | Emergency (ER) | payer OTHER ==
[~2020-07-24] VITALS: Ht 165.1 cm; Wt 108.9 kg
[~2020-07-24 22:39] MED LIST changes: -ALBU18HF2 INH; +AMLO10TA4 PO; -CALC-17 PO; -CELE100C PO; -FURO-145 PO; +FURO20TA4 PO; -LEVO500T75 PO; +LIRA0.6P2 SQ; -LOSA50TA39 PO; +NITR100C15 PO; +POTA-88 PO; -POTA10TA PO
--- NOTE | 2020-07-24 22:39 | NUR ---
BROUGHT IN BY AMBULANCE. VITAL SIGNS BP- 126/55, HR- 88, RR- 20, O2 SAT 97%. A/O X3, IN FOR FALL, ATTACHED TO MONITOR.
[2020-07-24] MEDS ORDERED: MORPHINE SULFATE INJ 4 MG/ML DISP.SYRIN ONE (22:50)
[2020-07-24] MEDS ORDERED: ONDANSETRON HCL/PF 4 MG/2 ML VIAL ONE (22:50)
[2020-07-24] MEDS ORDERED: MORPHINE SULFATE INJ 2 MG/ML DISP.SYRIN IV ONE (23:00)
[2020-07-24] MEDS ORDERED: IV NS 0.9% 500 ML BAG IV ONE (23:00)
[2020-07-24] MEDS ORDERED: ONDANSETRON HCL/PF 4 MG/2 ML VIAL IVP ONE (23:00)
--- NOTE | 2020-07-24 23:00 | NUR ---
RADIOLOGY AT BEDSIDE FOR XRAY
[2020-07-24 23:03] LABS: BASOPHILS # (AUTO) 0.1 /CMM (0.0-0.2); BASOPHILS % (AUTO) 0.6 % (0.0-2.0); EOSINOPHILS % (AUTO) 0.1 % (0.0-6.0); HEMATOCRIT 38 % (33-45); HEMOGLOBIN 11.8 g/dL (11.5-14.8); LYMPHOCYTES # (AUTO) 0.7 /CMM (0.8-4.8); LYMPHOCYTES % (AUTO) 5.4 % (20.0-44.0); MEAN CORPUSCULAR HGB CONC 31 g/dl (31.0-36.0); MEAN CORPUSCULAR VOLUME 72 fL (82-100); MONOCYTES # (AUTO) 0.8 /CMM (0.1-1.30); MONOCYTES % (AUTO) 6.2 % (2.0-12.0); NEUTROPHILS % (AUTO) 87.7 % (43.0-81.0); PLATELET COUNT (AUTO) 118 /CMM (150-450); WHITE BLOOD COUNT (AUTO) 13.6 K/uL (4.3-11.0)
--- NOTE | 2020-07-24 23:13 | NUR ---
RADIOLOGY AT BEDSIDE FOR XR
--- NOTE | 2020-07-24 23:23 | NUR ---
DR. MA AT BEDSIDE FOR EVAL.
[2020-07-24 23:25] LABS: ALBUMIN 2.9 g/dL (3.4-5.0); BILIRUBIN,DIRECT 0.3 mg/dL (0.0-0.2); BILIRUBIN,TOTAL 0.8 mg/dL (0.2-1.0); CREATININE 1.1 mg/dL (0.6-1.3); TOTAL PROTEIN, SERUM 7.3 g/dL (6.4-8.2)
--- NOTE | 2020-07-24 23:35 | NUR ---
SPOKE TO DR. MEDELLIN, INSTRUCTIONS TO HOLD OFF ON PLACING SANTO CATH AT THIS TIME. DR. MEDELLIN SPEAKING TO DR. MA REGARDING PLAN OF CARE.
--- NOTE | 2020-07-24 23:36 | NUR ---
PAIN SCALE IS 5. VITAL SIGNS BP- 91/64, HR- 87, O2 SAT 96%.
--- NOTE | 2020-07-25 00:49 | NUR ---
Karlee PERES AT BEDSIDE SPEAKING TO PT REGARDING PLAN OF CARE.
--- NOTE | 2020-07-25 00:52 | NUR ---
CALLED [facility] FOR [facility]SP[facility]. CONFIRMATION NUMBER [id number]. ETA 1 HOUR Addendum: 07/25/20 at 0159 by HENRY CANCELLED TRANSPORTATION
[2020-07-25] MEDS ORDERED: HYDROCODONE/APAP 5/325MG TABLET PO ONE ×2 (01:00→12:00)
--- NOTE | 2020-07-25 01:00 | NUR ---
PT NOTED IN PAIN, DR. Karlee MA AWARE. WILL MEDICATE PRESCRIBED. WILL HAVE CM FOLLOW UP IN AM.
[2020-07-25] MEDS ORDERED: HYDROCODONE/APAP 5/325MG TABLET ONE ×2 (01:04→11:39)
--- NOTE | 2020-07-25 01:40 | NUR ---
PT ASLEEP THIS TIME APPEARS COMFORTABLE. WILL CONTINUE TO MONITOR.
--- NOTE | 2020-07-25 04:31 | NUR ---
PT ASLEEP AT THIS TIME. APPEARS COMFORTABLE.
--- NOTE | 2020-07-25 07:13 | NUR ---
REPORT GIVEN TO SONIA GRACE FOR CONTINUITY OF CARE. NO ACURE DISTRESS NOTED. PENDING CM FOLLOW UP.
--- NOTE | 2020-07-25 10:24 | NUR ---
FAXED OVER FACESHEET AND CLINICALS TO [facility]
--- NOTE | 2020-07-25 12:22 | NUR ---
[facility] IS DOING TRANSPORT ETA IS 90 MINS. [facility] CALLED
--- NOTE | 2020-07-25 14:20 | NUR ---
PT LEFT ON GURNEY WITH 2 AMBULANCE STAFF. REPORT GIVEN TO AMBULANCE STAF. PT IS IN STABLE CONDITION FOR DISCHARGE. NAD NOTED.
[2020-07-25 14:21] VITALS: BP 96/70
== END 2020-07-25 14:21 | disposition home or self-care (01) ==
LOC: ER 22:41
DX: S30.0XXA Contusion of lower back and pelvis, initial encounter (principal); M25.552 Pain in left hip; M25.551 Pain in right hip; R10.2 Pelvic and perineal pain; I44.0 Atrioventricular block, first degree; I44.7 Left bundle-branch block, unspecified; I10 Essential (primary) hypertension; E11.9 Type 2 diabetes mellitus without complications; J45.909 Unspecified asthma, uncomplicated; E66.01 Morbid (severe) obesity due to excess calories; Z98.890 Other specified postprocedural states; Z79.4 Long term (current) use of insulin; Z79.84 Long term (current) use of oral hypoglycemic drugs; Z79.899 Other long term (current) drug therapy; Z68.39 Body mass index [BMI] 39.0-39.9, adult; W01.0XXA Fall on same level from slipping, tripping and stumbling without subsequent striking against object, initial encounter; Y93.89 Activity, other specified; Y92.89 Other specified places as the place of occurrence of the external cause; Y99.8 Other external cause status
CPT/HCPCS: 36415; 71045; 73502; 73503; 80048; 80076; 85025; 85730; 93005; 96361; 96374; 96375; 99285; J2270; J2405

== ENCOUNTER 2020-07-27 03:14 | Emergency (ER) | payer OTHER ==
[~2020-07-27] VITALS: Ht 165.1 cm; Wt 108.0 kg
[2020-07-27] MEDS ORDERED: MORPHINE SULFATE INJ 4 MG/ML DISP.SYRIN ONE (03:27)
[2020-07-27] MEDS ORDERED: MORPHINE SULFATE INJ 2 MG/ML DISP.SYRIN ONE (03:27)
[2020-07-27] MEDS ORDERED: MORPHINE SULFATE INJ 2 MG/ML DISP.SYRIN IV ONE (03:30)
--- NOTE | 2020-07-27 03:32 | NUR ---
BIBra for c/o hip and back pain s/p she rolled off of her bed. pt denied hitting her head and reported she was seen at [facility] ER 3 days ago. -KO was reported by the pt. pt was transferred to bed 4 and placed on a monitor. VS. will cont to monitor ,
--- NOTE | 2020-07-27 03:50 | NUR ---
PT BROUGHT BY RADIOLOGY TO CT
--- NOTE | 2020-07-27 05:15 | NUR ---
SPOKE WITH [facility] ELECTROMECHANICAL EQUIPMENT ASSEMBLER BURCH ([phone]) REGARDING PLACEMENT FOR PATIENT. WILL FAX CLINICAL INFORMATION PER REQUEST ([phone]). Addendum: 07/27/20 at 0553 by JaneneDEFEFAZAL ELECTROMECHANICAL EQUIPMENT ASSEMBLER REQUESTING FOR COVID SWAB FOR PLACEMENT, MD VALDES
--- NOTE | 2020-07-27 05:56 | NUR ---
COVID SWAB COLLECTED AND SENT TO LAB
--- NOTE | 2020-07-27 06:23 | NUR ---
Negro kothari in [facility] - 07/27/20 at 0653 by HENRY EBER VALDES
--- NOTE | 2020-07-27 06:23 | NUR ---
REC'D NEG COVID RESULTS. AWARE. RESULTS FAXED TO [facility] TRACTOR OPERATOR LASER LEVELING
--- NOTE | 2020-07-27 08:38 | NUR ---
RADHA MATTING PRESS TENDER MARITA CALLED. NO SNF PLACEMENT AT THIS TIME. CALL BACK # [phone]
--- NOTE | 2020-07-27 09:46 | NUR ---
Shayla VERDUZCO [facility] room 51-B report # [phone]
--- NOTE | 2020-07-27 09:56 | NUR ---
Report given to Obdulia SCOTT from [facility] for tracee. Still waiting for Ambulance ETA from [facility].
[2020-07-27 09:59] VITALS: BP 111/65
--- NOTE | 2020-07-27 10:04 | NUR ---
received 45 mins eta for bean picker machine operator [facility].
--- NOTE | 2020-07-27 10:50 | NUR ---
ambulance at bedside to cigar packer and picker the patient to take it to [facility] facility in no distress.
== END 2020-07-27 10:50 ==
LOC: ER 03:15
DX: M25.551 Pain in right hip (principal); J45.909 Unspecified asthma, uncomplicated; M54.5 Low back pain; I10 Essential (primary) hypertension; W06.XXXA Fall from bed, initial encounter; Y92.032 Bedroom in apartment as the place of occurrence of the external cause; Z20.828 Contact with and (suspected) exposure to other viral communicable diseases
CPT/HCPCS: 74176; 87426; 96374; 99285; J2270 ×2; C9803-CS

== ENCOUNTER 2020-09-10 17:41 | Emergency (ER) | payer OTHER ==
[~2020-09-10] VITALS: Ht 165.1 cm; Wt 135.6 kg
[2020-09-10] MEDS ORDERED: ALEN70TA6 PO (17:46)
[2020-09-10] MEDS ORDERED: PANT40TA49 PO (17:46)
--- NOTE | 2020-09-10 17:55 | NUR ---
GENERALIZED WEAKNESS, LOWER BACK PAIN S/P FALL WHILE BEING ASSISTED TODAY LEAVES ALONE. FAMILY REQUESTING PLACEMENT. PATIENT A/OX4, BREATHING EVEN AND UNLABORED, NO SOB NOTED, NEEDS ATTENDED. FAMILY AT BEDSIDE.
[2020-09-10] MEDS ORDERED: MORPHINE SULFATE INJ 2 MG/ML DISP.SYRIN IM ONE (19:00)
[2020-09-10] MEDS ORDERED: MORPHINE SULFATE INJ 4 MG/ML DISP.SYRIN ONE (19:00)
[2020-09-10] MEDS ORDERED: MORPHINE SULFATE INJ 2 MG/ML DISP.SYRIN ONE (19:00)
--- NOTE | 2020-09-10 19:11 | NUR ---
REPORT GIVEN TO YAYO SCOTT.
--- NOTE | 2020-09-10 20:22 | NUR ---
LINE INTIIATED LAC 20G, BLOOD WORK SENT TO LAB
--- NOTE | 2020-09-10 20:22 | NUR ---
COVID SWABBED, SENT TO LAB
[2020-09-10 20:23] LABS: BASOPHILS % (AUTO) 0.6 % (0.0-2.0); EOSINOPHILS % (AUTO) 1.7 % (0.0-6.0); HEMATOCRIT 28 % (33-45); HEMOGLOBIN 8.9 g/dL (11.5-14.8); LYMPHOCYTES # (AUTO) 0.8 /CMM (0.8-4.8); LYMPHOCYTES % (AUTO) 10.8 % (20.0-44.0); MEAN CORPUSCULAR HGB CONC 32 g/dl (31.0-36.0); MEAN CORPUSCULAR VOLUME 82 fL (82-100); MONOCYTES # (AUTO) 0.7 /CMM (0.1-1.30); MONOCYTES % (AUTO) 9.9 % (2.0-12.0); NEUTROPHILS # (AUTO) 5.3 /CMM (1.8-8.9); PLATELET COUNT (AUTO) 108 /CMM (150-450); RED BLOOD CELL COUNT(AUTO) 3.36 MIL/uL (4.0-5.2); WHITE BLOOD COUNT (AUTO) 6.9 K/uL (4.3-11.0)
[2020-09-10] MEDS ORDERED: HYDROMORPHONE 1 MG/1 ML DISP.SYRIN IV ONE (20:30)
[2020-09-10 20:35] LABS: CALCIUM, SERUM 7.4 mg/dL (8.5-10.1); CARBON DIOXIDE 25 mmol/L (21-32); CHLORIDE 98 mmol/L (98-107); CREATININE 1.8 mg/dL (0.6-1.3); GLUCOSE 228 mg/dL (74-106); POTASSIUM 4.3 mmol/L (3.5-5.1); SODIUM SERUM 130 mmol/L (136-145); UREA NITROGEN, BLOOD 30 mg/dL (7-18)
--- NOTE | 2020-09-10 20:52 | NUR ---
CALL FROM LAB. RAPID COVID NEGATIVE.
--- NOTE | 2020-09-10 21:04 | NUR ---
PT RESTING COMOFRTABLY. VSS.
[2020-09-10] MEDS ORDERED: IV NS 0.9% 500 ML BAG IV ONE (22:00)
--- NOTE | 2020-09-10 22:35 | NUR ---
PT PROVIDED WITH MORE BLANKETS. VSS.
[2020-09-11] MEDS ORDERED: HYDROMORPHONE 1 MG/1 ML DISP.SYRIN ONE (00:46)
--- NOTE | 2020-09-11 01:07 | NUR ---
PT STATED SHE FELT PAIN, MEDICATED/ VSS.
--- NOTE | 2020-09-11 01:50 | NUR ---
Pt accepted to [facility] Room 206-B by Dr Chahal. # for report [phone]. [facility] eta 0300
--- NOTE | 2020-09-11 02:21 | NUR ---
REPORT GIVEN TO ADI SCOTT FOR KATY
--- NOTE | 2020-09-11 03:30 | NUR ---
AWAITING FOR PT TO BE PICKED UP
--- NOTE | 2020-09-11 05:02 | NUR ---
JAMES ROSE CAME TO BOTTLE CAPPER PT. PER JAMES ROSE "PT WILL NOT FIT." WAS TOLD TO CALL INSURANCE TO SCHEDULE ANOTHER TRIP.
--- NOTE | 2020-09-11 05:51 | NUR ---
SPOKE TO PT REGARDING THE SITUATION. PT STATED SHE IS WILLING TO STAY IN THE E[place]. TO BE TRANSFERED TO [facility].
--- NOTE | 2020-09-11 06:15 | NUR ---
[facility]nz eta [phone]
[2020-09-11 07:05] VITALS: BP 138/43
--- NOTE | 2020-09-11 09:06 | NUR ---
PATIENT TRANSFERRED TO [facility]. A/OX4, NO DSITRESS NOTED.
== END 2020-09-11 09:08 | disposition short-term general hospital (02) ==
LOC: ER 17:43
DX: G89.29 Other chronic pain (principal); M54.5 Low back pain; J45.909 Unspecified asthma, uncomplicated; I10 Essential (primary) hypertension; E11.9 Type 2 diabetes mellitus without complications; Z79.4 Long term (current) use of insulin; Z74.09 Other reduced mobility; Z20.828 Contact with and (suspected) exposure to other viral communicable diseases
CPT/HCPCS: 36415; 80048; 85025; 87081; 87426; 96361; 96372; 96374; 99285; C9803; J1170; J2270 ×2; J7030

== ENCOUNTER 2020-11-07 22:37 | Inpatient (IN) | payer MEDICARE, OTHER ==
[~2020-11-07] VITALS: Ht 165.1 cm; Wt 128.4 kg
[~2020-11-07 22:37] MED LIST changes: +ALEN70TA69 PO; -NITR100C15 PO; +PANT40TA49 PO
--- NOTE | 2020-11-07 22:41 | NUR ---
PT AAOX3. BIBEMS FROM HOME C/O WORSENING SOB X1 DAY, WORSE IN THE PAST 1HR ENTRY LEVEL SALES ASSOCIATE. PT PLACED IN BED 8 ON THREAD SPINNER AND PULSE OX. RT AND MD AT BEDSIDE FOR EVAL. AWAITING ORDERS.
[2020-11-07] MEDS ORDERED: ALBUTEROL FS 2.5 MG/3 ML VIAL.NEB ONE (22:42)
[2020-11-07] MEDS ORDERED: IPRATROPIUM NEB FS 0.5 MG/2.5 ML AMPUL.NEB ONE (22:43)
--- NOTE | 2020-11-07 22:45 | NUR ---
CALLED LAB FOR SWABS
[2020-11-07] MEDS ORDERED: methylPREDNISolone SOD SUCC 125 MG/2ML VIAL ONE (22:46)
--- NOTE | 2020-11-07 22:54 | NUR ---
RT AT BEDSIDE FOR ABG DRAW
--- NOTE | 2020-11-07 22:59 | NUR ---
RT AT BEDSIDE FOR ABG
--- NOTE | 2020-11-07 22:59 | NUR ---
QIANID SWABBED, SENT TO LAB.
[2020-11-07] MEDS ORDERED: methylPREDNISolone SOD SUCC 125 MG/2ML VIAL IV ONE (23:00)
[2020-11-07] MEDS ORDERED: IPRATROPIUM NEB FS 0.5 MG/2.5 ML AMPUL.NEB NEB ONE (23:00)
[2020-11-07] MEDS ORDERED: ALBUTEROL FS 2.5 MG/3 ML VIAL.NEB CONTNEB ONE (23:00)
--- NOTE | 2020-11-07 23:00 | NUR ---
[place]PORT BAGGAGE SCREENER AT BEDSIDE FOR BLOOD WORK
[2020-11-07 23:03] LABS: ABG BASE EXCESS -0.2 mmol/L; ABG OXYGEN SATURATION 93.4 % (92.0-98.5); ABG PCO2 34.3 mmHg (35.0-45.0); ABG PH 7.451 (7.350-7.450); ABG PO2 69.1 mmHg (75.0-100.0); AaDO2 90.1 mmHg; COHb 0.2 % (0.5-1.5); MetHb 0.2 % (0.0-1.5); SITE, ABG Right Radial; VENT MODE, BG 2LNC
--- NOTE | 2020-11-07 23:08 | NUR ---
RT rt called for resp distress. pt found on RA, saturation 87%. pt states having difficulty breathing. neb tx ordered. lung sounds: expiratory wheeze throughout. placed on 2lnc, spo2 increased to 96%. abg done. will reassess post tx.
[2020-11-07 23:12] LABS: BASOPHILS # (AUTO) 0.1 /CMM (0.0-0.2); BASOPHILS % (AUTO) 0.5 % (0.0-2.0); EOSINOPHILS % (AUTO) 2.4 % (0.0-6.0); HEMATOCRIT 34 % (33-45); HEMOGLOBIN 10.7 g/dL (11.5-14.8); LYMPHOCYTES # (AUTO) 5.3 /CMM (0.8-4.8); LYMPHOCYTES % (AUTO) 32.4 % (20.0-44.0); MEAN CORPUSCULAR HGB CONC 31 g/dl (31.0-36.0); MEAN CORPUSCULAR VOLUME 87 fL (82-100); MONOCYTES # (AUTO) 1.8 /CMM (0.1-1.30); NEUTROPHILS # (AUTO) 8.8 /CMM (1.8-8.9); NEUTROPHILS % (AUTO) 53.7 % (43.0-81.0); PLATELET COUNT (AUTO) 263 /CMM (150-450); RED BLOOD CELL COUNT(AUTO) 3.92 MIL/uL (4.0-5.2); WHITE BLOOD COUNT (AUTO) 16.4 K/uL (4.3-11.0)
[2020-11-07 23:19] LABS: CALCIUM, SERUM 8.7 mg/dL (8.5-10.1); CREATININE 1.3 mg/dL (0.6-1.3); POTASSIUM 4.2 mmol/L (3.5-5.1)
[2020-11-07 23:31] LABS: ALBUMIN 2.3 g/dL (3.4-5.0); BILIRUBIN,DIRECT 0.2 mg/dL (0.0-0.2); BILIRUBIN,TOTAL 0.3 mg/dL (0.2-1.0); TOTAL PROTEIN, SERUM 7.8 g/dL (6.4-8.2)
--- NOTE | 2020-11-07 23:35 | NUR ---
RT post tx pt states can breathe much better. lung sounds clear throughout
--- NOTE | 2020-11-07 23:38 | NUR ---
BREATHING TREATMENT FINISHED, PT SAT 99% ON 2L NC.
[2020-11-07] MEDS ORDERED: ENOXAPARIN SODIUM 100 MG/ML DISP.SYRIN SQ ONE (23:45)
[2020-11-07] MEDS ORDERED: ENOXAPARIN SODIUM 30 MG/0.3 ML DISP.SYRIN SQ ONE (23:45)
--- NOTE | 2020-11-07 23:54 | NUR ---
CALLED PHARMACY FOR LOVENOX DOSING.
[2020-11-08] MEDS ORDERED: ONDANSETRON HCL/PF 4 MG/2 ML VIAL IVP ONE
[2020-11-08] MEDS ORDERED: MORPHINE SULFATE INJ 2 MG/ML DISP.SYRIN IV ONE
[2020-11-08] MEDS ORDERED: ENOXAPARIN SODIUM 30 MG/0.3 ML DISP.SYRIN ONE (00:04)
[2020-11-08] MEDS ORDERED: ONDANSETRON HCL/PF 4 MG/2 ML VIAL ONE (00:04)
[2020-11-08] MEDS ORDERED: MORPHINE SULFATE INJ 4 MG/ML DISP.SYRIN ONE (00:04)
[2020-11-08] MEDS ORDERED: ENOXAPARIN SODIUM 100 MG/ML DISP.SYRIN SQ ONE (00:04)
[2020-11-08] MEDS ORDERED: FUROSEMIDE 40 MG/4 ML VIAL ONE ×2 (00:22→00:39)
[2020-11-08] MEDS ORDERED: FUROSEMIDE 40 MG/4 ML VIAL IV ONE (00:30)
[2020-11-08] MEDS ORDERED: NITROGLYCERIN 0.4 MG/TAB BOTTLE SL PRN (01:00)
[2020-11-08] MEDS ORDERED: DEXTROSE 50%-WATER 50 ML DISP.SYRIN IV PRN (01:00)
[2020-11-08] MEDS ORDERED: IPRATROPIUM BROMIDE 14 GM INHALER (or 12.9 GM) IH PRN (01:00)
[2020-11-08] MEDS ORDERED: MORPHINE SULFATE INJ 4 MG/ML DISP.SYRIN IV ONE (01:00)
[2020-11-08] MEDS ORDERED: ALBUTEROL FS 2.5 MG/0.5 ML VIAL.NEB INH PRN (01:00)
--- NOTE | 2020-11-08 02:14 | NUR ---
REPORT GIVEN TO SURJIT SCOTT FOR KATY
[2020-11-08 02:45] VITALS: BP 129/66
--- NOTE | 2020-11-08 02:45 | NUR ---
CENTER AISLE CASHIERVIDEO CONTROL OPERATOR NOTE RECEIVED PATIENT VIA GURNEY. TRANSFERRED TO BED WITH NO INJURY. A/OX4. ON OXYGEN 2L/MIN VIA NASAL CANNULA. RESPIRATIONS EVEN AND UNLABORED. STATES FEELING SOB. C/O ABDOMINAL PAIN. EXTERNAL TELE MONITOR READS SINUS RHYTHM HR 87 WITH 1ST DEGREE AV BLOCK. IN NO APPARENT DISTRESS. IV ACCESS IN RAC#20 PATENT AND SALINE LOCKED. INITIAL ASSESSMENT COMPLETED AT THIS TIME. SKIN ASSESSMENT COMPLETED, PHOTOS TAKEN AND PLACED IN CHART. DATA CLERK OBTAIN VITAL SIGNS, AND COMPLETED BELONGINGS LIST. BED IS LOW AND LOCKED, HOB ELEVATED IN HIGH FOWLERS, SIDE RIALS UP X2, CALL LIGHT WITHIN REACH. WILL CONTINUE TO MONITOR.
--- NOTE | 2020-11-08 02:50 | NUR ---
PT TRANSFERED PER ACLS PROTOCOL
[2020-11-08] MEDS ORDERED: CEFTRIAXONE 1 G VIAL ONE (03:24)
[2020-11-08 03:32] LABS: C-REACTIVE PROTEIN 15.7 mg/dL (0.0-0.9)
--- NOTE | 2020-11-08 03:33 | NUR ---
teletypesetter note wire charger lucas pulled rcoephin 1gm from [employer] d/t pharmacy unable to formulate because its after hours.
[2020-11-08 04:00] VITALS: BP 120/58
[2020-11-08] MEDS: CEFTRIAXONE 1 G in IV D5W 50 ML IV SCH (04:01)
[2020-11-08] MEDS ORDERED: MORPHINE SULFATE INJ 2 MG/ML DISP.SYRIN ONE (04:45)
--- NOTE | 2020-11-08 04:48 | NUR ---
telegraph office telephone clerk note administered the one time dose order for morphine 1mg. set up and charger lucas pulled from omni cell d/t out of time to remove from omni cell. patient is in pain 8/10 in the entire abdomen. will continue to monitor.
--- NOTE | 2020-11-08 05:04 | NUR ---
UNIVERSITY LIBRARIAN NOTE INFORMED RIANA CHRISTIAN NP, THAT [facility] THE OUTSIDE PHARMACY IS TRYING TO VERIFY MEDICATION. ZITHROMAX 250MG BID ITS RECOMMENDED TO BE DOSED ONCE A DAY. ALSO CONCERN FOR HAVING A DOSE TO START TONIGHT OR FOR 0900. GINO FURNITURE SPRAYER VERBAL ORDER ZITHROMAX 250MG ONCE STARTING 0900. ALSO INFORMED HER THAT THEY WERE CONCERN FOR LOVENOX D/T THERE BEING 2 ORDERS. ONE IS WEIGHT BASED AND THE OTHER IS PROPHYLAXIS 40MG.GINO HERNANDEZ VERBALLY ORDERED TO CONTINUE LOVENOX 40MG AND DC LOVENOX WEIGHT BASE. ORDER READ BACK NOTED AND CARRIED OUT. ALSO INFORMED GINO HERNANDEZ THAT PATIENT IS REQUESTING SANTO CATHETER INSERTION. STATES DIFFICULT TO PEE ON BED BENAVIDEZ, PATIENT ALSO HAS PERINEAL RASH GOING UP TO ABDOMENAL FOLD /T OBESE AND INCONTINENCE, PATIENT ALSO ON LASIX TO BETTER OUTPUT. RECEIVED ORDER TO INSERT SANTO. ORDER READ BACK NOTED AND CARRIED OUT.
[2020-11-08] MEDS: BLOOD SUGAR DIAGNOSTIC 1 EACH STRIP IN SCH ×4 (06:23→21:54)
[2020-11-08] MEDS: INSULIN REGULAR, HUMAN 100 UNIT/ML 3 ML VIAL SQ PRN ×3 (06:27→21:56)
--- NOTE | 2020-11-08 07:30 | NUR ---
TELE/RN OPENING NOTE Received patient resting in bed, A&O x 3-4. No complaints of pain/discomfort at this time. Breathing even and non-labored on 2L via NC, no SOB noted. No cardiac distress noted, on tele monitor reading SR 91. IV access noted on RFA #20g, patent and intact, and flushing well. Bed locked to its lowest position, side rails x 2 up, call light in hand. Will continue with current medical management.
--- NOTE | 2020-11-08 07:30 | NUR ---
PLATFORM STAPLER CLOSING NOTE PATIENT RESTING IN BED. A/OX4. REMAINS ON OXYGEN 2L/MIN VIA NASAL CANNULA. NO RESP DISTRESS. NO C/O PAIN. EXTERNAL TELE MONITOR READS SINUS RHYTHM WITH 1ST DEGREE AV BLOCK. NO DISTRESS. IV ACCESS MAINTAINED IN RAC#20 PATENT AND SALINE LOCKED. BED IS LOW AND LOCKED, HOB ELEVATED IN HIGH FOWLERS, SIDE RIALS UP X2, CALL LIGHT WITHIN REACH. WILL ENDORSE TO NEXT SHIFT.
[2020-11-08 08:00] VITALS: BP 134/62
[2020-11-08] MEDS ORDERED: AZITHROMYCIN 250 MG TABLET PO SCH (09:00)
[2020-11-08] MEDS: INSULIN GLARGINE, 100 UNIT/ML CARTRIDGE SQ SCH (09:11)
[2020-11-08] MEDS: AZITHROMYCIN 250 MG TABLET PO SCH (09:13)
[2020-11-08] MEDS: methylPREDNISolone SOD SUCC 40 MG/ML VIAL IV SCH ×2 (09:13→16:48)
[2020-11-08] MEDS: AMLODIPINE BESYLATE 10 MG TABLET PO SCH (09:14)
[2020-11-08] MEDS: PANTOPRAZOLE 40 MG TABLET.DR PO SCH (09:14)
[2020-11-08] MEDS: METFORMIN 500 MG TABLET PO SCH ×2 (09:14→16:49)
[2020-11-08] MEDS: POTASSIUM CHLORIDE 20 MEQ TAB.PRT.SR PO SCH (09:14)
[2020-11-08] MEDS: FUROSEMIDE 40 MG/4 ML VIAL IV SCH ×5 (09:14→18:30)
[2020-11-08] MEDS: ASPIRIN 81 MG TAB.CHEW PO SCH (09:15)
[2020-11-08 10:52] LABS: BASOPHILS % (AUTO) 0.3 % (0.0-2.0); EOSINOPHILS % (AUTO) 0.1 % (0.0-6.0); HEMATOCRIT 30 % (33-45); HEMOGLOBIN 9.7 g/dL (11.5-14.8); LYMPHOCYTES # (AUTO) 0.5 /CMM (0.8-4.8); LYMPHOCYTES % (AUTO) 10.5 % (20.0-44.0); MEAN CORPUSCULAR HGB CONC 32 g/dl (31.0-36.0); MEAN CORPUSCULAR VOLUME 87 fL (82-100); MONOCYTES # (AUTO) 0.1 /CMM (0.1-1.30); MONOCYTES % (AUTO) 1.7 % (2.0-12.0); NEUTROPHILS # (AUTO) 3.8 /CMM (1.8-8.9); NEUTROPHILS % (AUTO) 87.4 % (43.0-81.0); PLATELET COUNT (AUTO) 118 /CMM (150-450); RED BLOOD CELL COUNT(AUTO) 3.47 MIL/uL (4.0-5.2); WHITE BLOOD COUNT (AUTO) 4.4 K/uL (4.3-11.0)
[2020-11-08 11:23] LABS: CALCIUM, SERUM 8.3 mg/dL (8.5-10.1); CREATININE 0.8 mg/dL (0.6-1.3)
[2020-11-08 11:30] LABS: ALBUMIN 3.5 g/dL (3.4-5.0); BILIRUBIN,TOTAL 0.1 mg/dL (0.2-1.0); MAGNESIUM 1.9 mg/dL (1.8-2.4); PHOSPHORUS 4.2 mg/dL (2.5-4.9)
[2020-11-08 11:31] LABS: TOTAL PROTEIN, SERUM 8.5 g/dL (6.4-8.2)
[2020-11-08 12:00] VITALS: BP 133/71
[2020-11-08] MEDS: ENOXAPARIN SODIUM 40 MG/0.4 ML DISP.SYRIN SQ SCH (12:00)
--- NOTE | 2020-11-08 12:00 | NUR ---
TELE/RN NOTE Held lovenox since patient's h&h and platelets significantly decreased with no s/s of active bleeding noted. MD aware, ordered stool OB.
[2020-11-08] MEDS: MORPHINE SULFATE INJ 2 MG/ML DISP.SYRIN IV PRN (14:20)
--- NOTE | 2020-11-08 14:20 | NUR ---
TELE/RN NOTE Patient complaining of 9/10 abdominal pain associated with "heaviness" upon breathing and movement, notified Dr. Weiner, ordered morphine 2mg IV q4h. Order carried out, administered medication as ordered.
[2020-11-08 14:34] LABS: FERRITIN 59 ng/mL (8-388)
--- NOTE | 2020-11-08 15:10 | NUR ---
MS/RN Nurse change Patient received from [place].
--- NOTE | 2020-11-08 15:10 | NUR ---
TELE/RN NOTE Gave report to SONIA Guerra for KATY.
[2020-11-08 16:00] VITALS: BP 141/79
--- NOTE | 2020-11-08 17:24 | NUR ---
MS/RN Blood sugar Blood sugar 209, insulin coverage as per sliding scale.
--- NOTE | 2020-11-08 19:30 | NUR ---
LVN OPENING NOTES PATIENT AWAKE IN BED. A/OX4. ON 2L NC; NO S/S OF ACUTE RESPIRATORY DISTRESS; BREATHING IS EVEN AND UNLABORED. NO C/O PAIN. TELE MONITOR READING SR WITH 1ST DEGREE AV BLOCK, HEART RATE 80. IV PRESENT ON LEFT FA, SIZE 20, INTACT & PATENT, HEP LOCKED. SAFETY MEASURES IN PLACE AND PATIENT'S NEEDS MET. BED LOCKED, HOB ELEVATED, SIDE RAILS X2, CALL LIGHT WITHIN REACH. WILL CONTINUE TO MONITOR.
[2020-11-08 20:00] VITALS: BP 147/69
[2020-11-08 21:27] LABS: IRON, SERUM 15 ug/dl (50-175); TOTAL IRON BINDING CAPACITY 228 ug/dl (250-450)
[2020-11-08] MEDS: GUAIFENESIN/D-METHORPHAN HB 5 ML UDC PO PRN (23:27)
[2020-11-09] VITALS: BP 149/84
[2020-11-09] MEDS: MORPHINE SULFATE INJ 2 MG/ML DISP.SYRIN IV PRN (01:21)
[2020-11-09] MEDS: CEFTRIAXONE 1 G in IV D5W 50 ML IV SCH (03:22)
[2020-11-09 04:00] VITALS: BP 144/67
[2020-11-09] MEDS: PANTOPRAZOLE 40 MG TABLET.DR PO SCH (06:43)
[2020-11-09] MEDS: INSULIN REGULAR, HUMAN 100 UNIT/ML 3 ML VIAL SQ PRN (06:44)
[2020-11-09] MEDS: BLOOD SUGAR DIAGNOSTIC 1 EACH STRIP IN SCH ×3 (06:46→17:41)
[2020-11-09 07:38] LABS: BASOPHILS % (AUTO) 0.3 % (0.0-2.0); EOSINOPHILS % (AUTO) 0.6 % (0.0-6.0); HEMATOCRIT 30 % (33-45); HEMOGLOBIN 9.6 g/dL (11.5-14.8); LYMPHOCYTES # (AUTO) 0.8 /CMM (0.8-4.8); LYMPHOCYTES % (AUTO) 13.1 % (20.0-44.0); MEAN CORPUSCULAR HGB CONC 32 g/dl (31.0-36.0); MEAN CORPUSCULAR VOLUME 87 fL (82-100); MONOCYTES # (AUTO) 0.7 /CMM (0.1-1.30); MONOCYTES % (AUTO) 11.1 % (2.0-12.0); NEUTROPHILS # (AUTO) 4.7 /CMM (1.8-8.9); NEUTROPHILS % (AUTO) 74.9 % (43.0-81.0); PLATELET COUNT (AUTO) 143 /CMM (150-450); RED BLOOD CELL COUNT(AUTO) 3.42 MIL/uL (4.0-5.2); WHITE BLOOD COUNT (AUTO) 6.3 K/uL (4.3-11.0)
--- NOTE | 2020-11-09 07:41 | NUR ---
DIGITAL CONTENT SPECIALIST OPENING NOTES PATIENT AWAKE IN BED. A/OX4. PATIENT ON OXYGEN THERAPY AT 2L NC; NO S/S OF ACUTE RESPIRATORY DISTRESS; BREATHING IS EVEN AND UNLABORED. NO C/O PAIN. TELE MONITOR READING SR WITH 1ST DEGREE AV BLOCK. IV PRESENT ON LEFT FA, SIZE 20, INTACT & PATENT, HL. SAFETY PRECAUTIONS IN PLACE; BED IN LOW POSITION AND LOCKED, HOB ELEVATED, SIDE RAILS X2, CALL LIGHT WITHIN REACH. WILL CONTINUE TO MONITOR PATIENT.
[2020-11-09 08:08] LABS: ALBUMIN 2.1 g/dL (3.4-5.0); BILIRUBIN,TOTAL 0.2 mg/dL (0.2-1.0); CALCIUM, SERUM 8.3 mg/dL (8.5-10.1); CREATININE 1.2 mg/dL (0.6-1.3); MAGNESIUM 1.6 mg/dL (1.8-2.4); POTASSIUM 4.2 mmol/L (3.5-5.1)
--- NOTE | 2020-11-09 08:14 | NUR ---
COMMERCIAL FINANCE ANALYST CLOSING NOTES PATIENT AWAKE IN BED. A/OX4. ON 2L NC; NO S/S OF ACUTE RESPIRATORY DISTRESS; BREATHING IS EVEN AND UNLABORED. NO C/O PAIN. TELE MONITOR READING SR WITH 1ST DEGREE AV BLOCK. IV PRESENT ON LEFT FA, SIZE 20, INTACT & PATENT, HEP LOCKED. SAFETY MEASURES IN PLACE AND PATIENT'S NEEDS MET. BED LOCKED, HOB ELEVATED, SIDE RAILS X2, CALL LIGHT WITHIN REACH. ENDORSED TO DAY SHIFT RN PLAN OF CARE.
[2020-11-09 08:24] LABS: THYROID STIMULATING HORMONE 1.991 uIU/mL (0.358-3.74)
[2020-11-09] MEDS: INSULIN GLARGINE, 100 UNIT/ML CARTRIDGE SQ SCH (09:00)
[2020-11-09] MEDS: ENOXAPARIN SODIUM 40 MG/0.4 ML DISP.SYRIN SQ SCH (09:00)
[2020-11-09] MEDS: POTASSIUM CHLORIDE 20 MEQ TAB.PRT.SR PO SCH (09:30)
[2020-11-09] MEDS: AZITHROMYCIN 250 MG TABLET PO SCH (09:30)
[2020-11-09] MEDS: AMLODIPINE BESYLATE 10 MG TABLET PO SCH (09:31)
[2020-11-09] MEDS: methylPREDNISolone SOD SUCC 40 MG/ML VIAL IV SCH ×2 (09:31→17:22)
[2020-11-09] MEDS: FUROSEMIDE 40 MG/4 ML VIAL IV SCH ×2 (09:32→17:22)
[2020-11-09] MEDS: METFORMIN 500 MG TABLET PO SCH ×2 (09:35→17:22)
[2020-11-09] MEDS: ASPIRIN 81 MG TAB.CHEW PO SCH (09:36)
--- NOTE | 2020-11-09 10:58 | NUR ---
WOUND CARE CONSULT: PT PRESENTS WITH RASHES TO BREASTFOLD, ABDOMINAL/GROIN FOLDS AND BUTTOCKS WELL SACRAL SCARRING, PRESENT ON ADMISSION. RECOMMENDATIONS MADE FOR SKIN PROTECTION. DISCUSSED WITH NURSING STAFF. CURRENT KATELYN SCORE IS 14. IN AGREEMENT WITH PLAN OF CARE. Addendum: 11/09/20 at 1059 by SANDRA FISCHER WNDNU Amended: Links added.
[2020-11-09] MEDS ORDERED: Z GUARD REMEDY 2 OZ OINT TP PRN (11:00)
[2020-11-09] MEDS: Z GUARD REMEDY 2 OZ OINT TP SCH (11:13)
[2020-11-09] MEDS: Magnesium 1GM/D5W 100ML PREMIX 100 ML IV SCH ×2 (12:08→14:10)
[2020-11-09 13:18] VITALS: BP 125/62
[2020-11-09] MEDS ORDERED: Magnesium 1GM/D5W 100ML PREMIX 100 ML IV SCH (14:00)
--- NOTE | 2020-11-09 14:17 | NUR ---
WELLNESS COACH NOTES 2 BAGS F MAGNESIUM ALREADY GIVEN TOTAL OF 2G. PHARMACY AWARE AND 1400 WAS DISREGARDED.
[2020-11-09] MEDS ORDERED: ALBUTEROL FS 2.5 MG/0.5 ML VIAL.NEB INH SCH (15:00)
[2020-11-09] MEDS ORDERED: IPRATROPIUM BROMIDE 14 GM INHALER (or 12.9 GM) IH SCH (15:00)
[2020-11-09] MEDS: GUAIFENESIN/D-METHORPHAN HB 5 ML UDC PO PRN (15:47)
[2020-11-09 16:00] VITALS: BP 136/73
[2020-11-09] MEDS: CLOTRIMAZOLE 1% 15 GM TUBE TP SCH (17:23)
[2020-11-09] MEDS: HYDROCODONE/APAP 10/325MG TABLET PO PRN (18:20)
--- NOTE | 2020-11-09 19:30 | NUR ---
TELERN FULLY AWAKE, A/O X3. ALL NEEDS ATTENEDED. PLAN OF CARE AND MEDICATION REGIMEN DISCUSS WITH PATIENT, WELL UNDERSTOOD. PAIN ON LEG TOLERABLE FOR NOW. STATED WILL TAKE NORCO WHEN DUE. SANTO TO GRAVITY OUTPUT MONITORED. SR ON THE MONITOR CONTINUED.
[2020-11-09 20:00] VITALS: BP 139/76
--- NOTE | 2020-11-09 20:00 | NUR ---
TICKETING CLERK CLOSING NOTES PATIENT REMAINS AWAKE IN BED. A/OX4. PATIENT ON OXYGEN THERAPY AT 3L NC; NO S/S OF ACUTE RESPIRATORY DISTRESS; BREATHING IS EVEN AND UNLABORED. PAIN TREATED WITH PRN PAIN MEDICATIONS PER MD ORDER. TELE MONITOR READING SR WITH 1ST DEGREE AV BLOCK. IV PRESENT ON LEFT FA, SIZE 20, INTACT & PATENT, HL. ALL NEEDS ATTENDED THROUGHOUT THE DAY. SAFETY PRECAUTIONS IN PLACE; BED IN LOW POSITION AND LOCKED, HOB ELEVATED, SIDE RAILS X2, CALL LIGHT WITHIN REACH. WILL ENDORSE TO RN INFORMATICS NURSE.
[2020-11-10] MEDS: BLOOD SUGAR DIAGNOSTIC 1 EACH STRIP IN SCH ×5 (00:11→22:32)
[2020-11-10] MEDS ORDERED: ENOXAPARIN SODIUM 120 MG/0.8 ML DISP.SYRIN SQ SCH (00:16)
[2020-11-10] MEDS: HYDROCODONE/APAP 10/325MG TABLET PO PRN ×2 (00:20→14:27)
[2020-11-10] MEDS ORDERED: ENOXAPARIN SODIUM 60 MG/0.6 ML DISP.SYRIN SQ ONE (00:25)
[2020-11-10] MEDS: ENOXAPARIN SODIUM 60 MG/0.6 ML DISP.SYRIN SQ SCH ×3 (00:35→21:43)
--- NOTE | 2020-11-10 00:35 | NUR ---
TELERN LOVENOX 120 MG SQ ADMINISTERED ORDERED. FOR + DVT RIGHT FEMORAL PROXIMAL VEIN.
[2020-11-10] MEDS: CEFTRIAXONE 1 G in IV D5W 50 ML IV SCH (04:03)
[2020-11-10 05:00] VITALS: BP 158/71
--- NOTE | 2020-11-10 06:15 | NUR ---
TELERN BS 157 COVERED PER SLIDING SCALE.
[2020-11-10 07:55] LABS: HEMATOCRIT 31 % (33-45); HEMOGLOBIN 9.9 g/dL (11.5-14.8); LYMPHOCYTES # (AUTO) 0.7 /CMM (0.8-4.8); LYMPHOCYTES % (AUTO) 12.9 % (20.0-44.0); MEAN CORPUSCULAR HGB CONC 32 g/dl (31.0-36.0); MEAN CORPUSCULAR VOLUME 87 fL (82-100); MONOCYTES # (AUTO) 0.4 /CMM (0.1-1.30); MONOCYTES % (AUTO) 6.9 % (2.0-12.0); NEUTROPHILS # (AUTO) 4.5 /CMM (1.8-8.9); NEUTROPHILS % (AUTO) 80.2 % (43.0-81.0); PLATELET COUNT (AUTO) 163 /CMM (150-450); RED BLOOD CELL COUNT(AUTO) 3.58 MIL/uL (4.0-5.2); WHITE BLOOD COUNT (AUTO) 5.7 K/uL (4.3-11.0)
[2020-11-10 07:57] LABS: CALCIUM, SERUM 8.8 mg/dL (8.5-10.1); CREATININE 1.1 mg/dL (0.6-1.3); PHOSPHORUS 3.4 mg/dL (2.5-4.9); POTASSIUM 5.5 mmol/L (3.5-5.1)
[2020-11-10 08:00] VITALS: BP 144/74
--- NOTE | 2020-11-10 08:00 | NUR ---
TELE/RN OPENING NOTES RECEIVED PATIENT IN BED. A/O X4. ON NC X3L. IV RIGHT FA #20, INTACT AND PATENT. NO SIGNS OF RESPIRATORY DISTRESS. TELE MONITOR READING SR WITH BUNDLE BRANCH BLOCK ST DEPRESSION. SAFETY PRECAUTIONS WERE PROVIDED. SIDE RAILS X 3. CALL LIGHT WITHIN REACH. WILL CONTINUE TO MONITOR.
[2020-11-10] MEDS: POTASSIUM CHLORIDE 20 MEQ TAB.PRT.SR PO SCH (08:36)
[2020-11-10] MEDS: ASPIRIN 81 MG TAB.CHEW PO SCH (08:36)
[2020-11-10] MEDS: AZITHROMYCIN 250 MG TABLET PO SCH (08:36)
[2020-11-10] MEDS: AMLODIPINE BESYLATE 10 MG TABLET PO SCH (08:37)
[2020-11-10] MEDS: PANTOPRAZOLE 40 MG TABLET.DR PO SCH (08:37)
[2020-11-10] MEDS: methylPREDNISolone SOD SUCC 40 MG/ML VIAL IV SCH ×2 (08:37→16:53)
[2020-11-10] MEDS: METFORMIN 500 MG TABLET PO SCH ×2 (08:37→17:10)
[2020-11-10] MEDS: FUROSEMIDE 40 MG/4 ML VIAL IV SCH ×2 (08:37→16:53)
[2020-11-10] MEDS: Z GUARD REMEDY 2 OZ OINT TP SCH (08:38)
[2020-11-10] MEDS: CLOTRIMAZOLE 1% 15 GM TUBE TP SCH ×2 (08:38→16:53)
[2020-11-10] MEDS: INSULIN GLARGINE, 100 UNIT/ML CARTRIDGE SQ SCH (08:49)
[2020-11-10] MEDS ORDERED: SODIUM POLYSTYRENE SULFONATE 15 G/60 ML BOTTLE PO ONE (09:00)
[2020-11-10] MEDS: INSULIN REGULAR, HUMAN 100 UNIT/ML 3 ML VIAL SQ PRN ×3 (12:31→22:39)
--- NOTE | 2020-11-10 12:31 | NUR ---
BS OF 203. INSULIN GIVEN PER SLIDING SCALE.
--- NOTE | 2020-11-10 14:27 | NUR ---
TELE/RN NOTES PATIENT VERBALIZED PAIN 10/10 ON THE CHEST AREA. NORCO GIVEN.
[2020-11-10] MEDS: GUAIFENESIN/D-METHORPHAN HB 5 ML UDC PO PRN (14:53)
--- NOTE | 2020-11-10 14:53 | NUR ---
TELE/RN NOTES PATIENT KEEPS ON COUGHING AND COUGHING. ROBITUSSIN PRN GIVEN.
[2020-11-10] MEDS: SOD FERRIC GLUC 125 MG in IV NS 0.9% 100 ML IV SCH (15:24)
[2020-11-10 16:00] VITALS: BP 165/85
--- NOTE | 2020-11-10 17:22 | NUR ---
TELE/RN NOTES BS OF 197. INSULIN GIVEN PER SLIDING SCALE.
--- NOTE | 2020-11-10 18:29 | NUR ---
TELE/RN CLOSING NOTES PATIENT IN BED ON SEMI DUDLEY'S. A/O x4. REINSERTED A NEW IV LINE ON ARIES MIDLINE INSERTION #18, INTACT AND PATENT. NO SIGNS OF RESPIRATORY DISTRESS. PAIN PRN MED ADMINISTERED PER MD ORDER. INSULIN GIVEN PER SLIDING SCALE. SAFETY MEASURES WERE PROVIDED. BED IS IN LOWEST POSITION. SIDE RAILS UP X2. CALL LIGHT WITHIN REACH. WILL ENDORSE TO STUDENT DRIVING INSTRUCTOR NURSE.
[2020-11-10 20:00] VITALS: BP 159/91
[2020-11-10] MEDS: IPRATROPIUM NEB FS 0.5 MG/2.5 ML AMPUL.NEB HHN SCH ×2 (20:00→23:29)
[2020-11-10] MEDS: ALBUTEROL FS 2.5 MG/0.5 ML VIAL.NEB INH SCH ×2 (20:00→23:30)
--- NOTE | 2020-11-10 20:14 | NUR ---
RN OPENING NOTE RECEIVED PATIENT IN BED RESTING ALERT ORIENTED X4 VERBALLY RESPONSIVE NO SOB NOT ACUTE DISTRESS NOTED ON 3L OXYGEN VIA NASAL CANNULA,O2:98 IV SITE IS ON RIGHT UPPER ARM MID LINE INTACT PATENT,SAFETY MEASURE IMPLEMENT,CALL LIGHT WITHIN REACH,CONTINUE TO MONITOR
[2020-11-10 20:44] VITALS: BP 164/91
[2020-11-11] VITALS: BP 152/67
[2020-11-11 00:42] VITALS: BP 152/67
[2020-11-11 04:00] VITALS: BP 139/55
[2020-11-11 04:17] VITALS: BP 139/55
[2020-11-11] MEDS: IPRATROPIUM NEB FS 0.5 MG/2.5 ML AMPUL.NEB HHN SCH ×4 (04:34→15:30)
[2020-11-11] MEDS: ALBUTEROL FS 2.5 MG/0.5 ML VIAL.NEB INH SCH ×4 (04:34→15:30)
[2020-11-11] MEDS: CEFTRIAXONE 1 G in IV D5W 50 ML IV SCH (05:47)
--- NOTE | 2020-11-11 06:50 | NUR ---
RN CLOSING NOTE PATIENT REMAINS ON STABLE CONDITION ALERT ORIENTED,X4 VERBALLY RESPONSIVE NO SOB NOT ACUTE DISTRESS NOTED,ON 3LOXYGEN VIA NASAL CANNULA O2:97% IV SITE IS ON RIGHT UPPER MID LINE INTACT PATENT,SANTO IS IN PLACE URINE DRAINING YELLOW AND CLEAR,ALL DUE MEDS GIVEN MD ORDERED,KEPT CLEAN AND DRY ALL THE TIME,KEPT CALL LIGHT WITHIN REACH,ALL NEEDS MET.ENDORSE NEXT COMING SHIFT FOR CONTINUATION OF CARE.
[2020-11-11 06:53] LABS: BASOPHILS % (AUTO) 0.1 % (0.0-2.0); HEMATOCRIT 30 % (33-45); HEMOGLOBIN 9.6 g/dL (11.5-14.8); LYMPHOCYTES # (AUTO) 0.7 /CMM (0.8-4.8); LYMPHOCYTES % (AUTO) 12.7 % (20.0-44.0); MEAN CORPUSCULAR HGB CONC 32 g/dl (31.0-36.0); MEAN CORPUSCULAR VOLUME 87 fL (82-100); MONOCYTES # (AUTO) 0.5 /CMM (0.1-1.30); MONOCYTES % (AUTO) 8.2 % (2.0-12.0); NEUTROPHILS # (AUTO) 4.5 /CMM (1.8-8.9); PLATELET COUNT (AUTO) 161 /CMM (150-450); RED BLOOD CELL COUNT(AUTO) 3.44 MIL/uL (4.0-5.2); WHITE BLOOD COUNT (AUTO) 5.7 K/uL (4.3-11.0)
[2020-11-11 07:25] LABS: ALBUMIN 2.3 g/dL (3.4-5.0); BILIRUBIN,TOTAL 0.2 mg/dL (0.2-1.0); CALCIUM, SERUM 8.4 mg/dL (8.5-10.1); CREATININE 1.1 mg/dL (0.6-1.3); MAGNESIUM 1.9 mg/dL (1.8-2.4); PHOSPHORUS 3.2 mg/dL (2.5-4.9); POTASSIUM 4.6 mmol/L (3.5-5.1); TOTAL PROTEIN, SERUM 7.3 g/dL (6.4-8.2)
[2020-11-11 08:00] VITALS: BP 136/64
--- NOTE | 2020-11-11 08:06 | NUR ---
TELE/RN OPENING NOTE RECEIVED PATIENT IN BED. A/O X4. WITH NC @ 2L/MIN. IV ON ARIES MIDLINE, INTACT AND PATENT. ON SANTO CATHETER, DRAINING WELL. NO SIGNS OF RESPIRATORY DISTRESS. BREATHING EVEN AND UNLABORED. IMPLEMENTED SAFETY PRECAUTION . SIDE RAILS UP X2. BED IN LOWEST LEVEL. CALL LIGHT WITHIN REACH. WILL CONTINUE TO MONITOR.
[2020-11-11] MEDS: AZITHROMYCIN 250 MG TABLET PO SCH (08:33)
[2020-11-11] MEDS: ASPIRIN 81 MG TAB.CHEW PO SCH (08:33)
[2020-11-11] MEDS: METFORMIN 500 MG TABLET PO SCH (08:34)
[2020-11-11] MEDS: PANTOPRAZOLE 40 MG TABLET.DR PO SCH (08:34)
[2020-11-11 08:38] VITALS: BP 136/64
[2020-11-11] MEDS: AMLODIPINE BESYLATE 10 MG TABLET PO SCH (08:38)
[2020-11-11] MEDS: BLOOD SUGAR DIAGNOSTIC 1 EACH STRIP IN SCH ×2 (08:39→11:44)
[2020-11-11] MEDS: CLOTRIMAZOLE 1% 15 GM TUBE TP SCH (08:39)
[2020-11-11] MEDS: Z GUARD REMEDY 2 OZ OINT TP SCH (08:39)
[2020-11-11] MEDS: methylPREDNISolone SOD SUCC 40 MG/ML VIAL IV SCH (08:40)
[2020-11-11] MEDS: ENOXAPARIN SODIUM 60 MG/0.6 ML DISP.SYRIN SQ SCH (08:43)
[2020-11-11] MEDS: INSULIN GLARGINE, 100 UNIT/ML CARTRIDGE SQ SCH (08:44)
[2020-11-11] MEDS ORDERED: APIX5TAB PO (10:34)
[2020-11-11] MEDS ORDERED: AZIT250T PO (10:34)
[2020-11-11] MEDS ORDERED: ASPI-1169 PO (10:34)
[2020-11-11] MEDS ORDERED: PRED50TA PO (10:37)
[2020-11-11] MEDS: HYDROCODONE/APAP 10/325MG TABLET PO PRN (10:59)
--- NOTE | 2020-11-11 11:01 | NUR ---
TELE/RN PATIENT VERBALIZED PAIN 10/10 ON HER BACK. NORCO PRN GIVEN
[2020-11-11] MEDS: INSULIN REGULAR, HUMAN 100 UNIT/ML 3 ML VIAL SQ PRN (11:42)
--- NOTE | 2020-11-11 11:52 | NUR ---
TELE/RN BS OF 259. INSULIN GIVEN PER SLIDING SCALE.
[2020-11-11] MEDS: SOD FERRIC GLUC 125 MG in IV NS 0.9% 100 ML IV SCH (14:00)
--- NOTE | 2020-11-11 16:41 | NUR ---
Tele/RN - Discharge Patient is alert and oriented X 4, afebrile, denies chest pain, no c/o shortness of breath, on room air without distress. Reviewed discharge instructions with patient and she verbalized full understanding of all teachings including medications and follow-up care with PCP within 1 week. Patient was advised to seek immediate medical attention if she experience chest pain, shortness of breath, palpitations, abdominal pain/distention, intractable nausea and vomiting, diarrhea, weakness, or any other emergent concerns. Patient refused skin photos to be taken. John catheter removed, home health nurse to monitor for any complications post removal. Midline removed on the ARIES with no complications. All belongings with patient and she deny any missing items. Discharge paperwork signed and copies were given per protocol. Endorsed to ambulance crew accordingly. Patient left the unit at 16:15.
[2020-11-14] MEDS ORDERED: ALENDRONATE 70 MG TABLET PO SCH (07:30)
== END 2020-11-11 16:50 | disposition home health service (06) | DRG 280 ==
LOC: ER 22:38 → OBSER 11-08 01:44 → OBSVTOIN 11-08 01:44 → TELE 11-08 02:06 → MED 11-11 09:43
PROVIDERS: ADMIT Internal Medicine; ATTEND Internal Medicine
PROC: 05HY33Z Insertion of Infusion Device into Upper Vein, Percutaneous Approach (ICD-10-PCS; principal; 2020-11-11)
DX: I11.0 Hypertensive heart disease with heart failure (principal); J96.01 Acute respiratory failure with hypoxia; I21.A1 Myocardial infarction type 2; N17.0 Acute kidney failure with tubular necrosis; J45.901 Unspecified asthma with (acute) exacerbation; I82.409 Acute embolism and thrombosis of unspecified deep veins of unspecified lower extremity; J98.11 Atelectasis; Z68.42 Body mass index [BMI] 45.0-49.9, adult; J44.9 Chronic obstructive pulmonary disease, unspecified; E78.5 Hyperlipidemia, unspecified; E11.9 Type 2 diabetes mellitus without complications; Z98.890 Other specified postprocedural states; Z79.4 Long term (current) use of insulin; Z79.83 Long term (current) use of bisphosphonates; Z79.899 Other long term (current) drug therapy; E66.01 Morbid (severe) obesity due to excess calories; K21.9 Gastro-esophageal reflux disease without esophagitis; M81.0 Age-related osteoporosis without current pathological fracture; M19.90 Unspecified osteoarthritis, unspecified site; Z20.828 Contact with and (suspected) exposure to other viral communicable diseases; Z79.01 Long term (current) use of anticoagulants; Z87.891 Personal history of nicotine dependence; G47.33 Obstructive sleep apnea (adult) (pediatric); D50.9 Iron deficiency anemia, unspecified; T50.2X5A Adverse effect of carbonic-anhydrase inhibitors, benzothiadiazides and other diuretics, initial encounter; Y92.9 Unspecified place or not applicable; G89.29 Other chronic pain; I50.33 Acute on chronic diastolic (congestive) heart failure
CPT/HCPCS: 36415; 36600; 71045-TC; 80048-TC; 80053-TC; 80061-TC; 80076-TC; 82550-TC; 82728-TC; 82803-TC; 82962-TC; 83540-TC; 83615-TC; 83735-TC; 83880; 84100-TC; 84443-TC; 84484-TC; 85025-TC; 85378-TC; 85730-TC; 86140-TC; 87081-TC; 93307-TC; 93970-TC; 94799-TC; C9803; G0378; J0696; J1650; J1815; J1940; J2270; J2405; J2916; J2920; J2930; J3475; J7030; J7050; J7060